=== PATIENT | male | born 1975 | race Asian ===

== ENCOUNTER 2017-06-29 15:23 | Inpatient (IN) | payer MEDICAID ==
[2017-06-29] MEDS ORDERED: Lidocaine 1% INJ* 10 MG/ML 30 ML SDV INJ ONE (17:20)
[2017-06-29] MEDS ORDERED: Ondansetron INJ* 2 MG/ML VIAL IV ONE (17:24)
[2017-06-29] MEDS ORDERED: Morphine INJ* 4 MG/ML 1 ML CARPUJECT IV ONE ×2 (17:24→18:40)
[2017-06-29] MEDS: NS 0.9% 1000 ML*IV.FLUID IV ONE ×2 (17:50→20:37)
--- NOTE | 2017-06-29 17:53 | ED ---
Skin Complaint - HPI Summary HPI Summary: 41M w/ PMH of HTN and hep C presents with abscess on right buttock for 4 days. He states he has felt like has an intermittent fever for past 4 days. He states he believes it started as an ingrown hair. He has been placing heat on the area. He has noticed some yellow drainage from the area. The area has been getting bigger. He is not diabetic. He does not have a primary as he just got out of snf. He denies any abdominal pain. He admits to diarrhea. He denies any chest pain, SOB. He denies any history of MRSA. He denies any nausea or vomiting. - History of Current Complaint Chief Complaint: EDRashSkinAbscess Time Seen by Provider: 06/29/17 17:08 Stated Complaint: INGROWN HAIR ON RIGHT LOWER BACK Pain Intensity: 10 - Allergy/Home Medications Allergies/Adverse Reactions: Allergies Allergy/AdvReac Type Severity Reaction Status Date / Time No Known Allergies Allergy Verified 06/29/17 15:29 Home Medications: Home Medications Celexa TAB* 20 mg PO DAILY 06/29/17 [History Confirmed 06/29/17] Mirtazapine TAB* [Remeron TAB*] 30 mg PO BEDTIME 06/29/17 [History Confirmed ] PMH/Surg Hx/FS Hx/Imm Hx Endocrine/Hematology History: Denies: Hx Anticoagulant Therapy, Hx Diabetes, Hx Thyroid Disease Cardiovascular History: Reports: Hx Hypertension Denies: Hx Pacemaker/ICD Respiratory History: Denies: Hx Asthma, Hx Chronic Obstructive Pulmonary Disease (COPD) History: Denies: Hx Renal Disease Neurological History: Denies: Hx Dementia, Hx Seizures Psychiatric History: Reports: Hx Substance Abuse - heroin clean X 1 year' Denies: Hx of Violent Episodes Against Others Infectious Disease History: No Infectious Disease History: Reports: Hx Hepatitis Denies: Hx Clostridium Difficile, Hx Human Immunodeficiency Virus (HIV), Hx Shingles, Hx Tuberculosis, Traveled Outside the [place] in Last 30 Days - Family History Known Family History: Negative: Diabetes - Social History Alcohol Use: None Substance Use Type: Reports: None Substance Use Comment - Amount & Last Used: hx of heroin abuse, 4-5 years clean Smoking Status (MU): Former Smoker Review of Systems Positive: Fever Negative: Chest Pain Negative: Shortness Of Breath Positive: Other - abscess right buttock All Other Systems Reviewed And Are Negative: Yes Physical Exam Triage Information Reviewed: Yes Vital Signs On Initial Exam: Initial Vitals Temp Pulse Resp BP Pulse Ox 99.6 F 120 16 138/72 97 06/29/17 15:26 06/29/17 15:26 06/29/17 15:26 06/29/17 15:26 06/29/17 15:26 Vital Signs Reviewed: Yes Appearance: Positive: Ill-Appearing Skin: Positive: Warm, Dry, Other - 8cm by 6cm area of locaulation with erythema and yellow drainage from center Head/Face: Positive: Normal Head/Face Inspection Eyes: Positive: Normal, EOMI, GLEN, Conjunctiva Clear ENT: Positive: Normal ENT inspection, Pharynx normal, TMs normal Respiratory/Lung Sounds: Positive: Clear to Auscultation, Breath Sounds Present Cardiovascular: Positive: Normal, RRR Abdomen Description: Positive: Nontender, Soft Bowel Sounds: Positive: Present Musculoskeletal: Positive: Normal Neurological: Positive: Normal - Radha Coma Scale Coma Scale Total: 15 Procedures - Incision and Drainage Site: right buttock Anesthesia: Local Instrument(s): Scalpel Packing: Gauze Diagnostics - Vital Signs Vital Signs Temp Pulse Resp BP Pulse Ox 06/29/17 17:49 15 06/29/17 15:26 99.6 F 120 16 138/72 97 - Laboratory Result Diagrams: 06/29/17 17:49 06/29/17 17:49 Lab Statement: Any lab studies that have been ordered have been reviewed, and results considered in the medical decision making process. Course/Dx - Course Course Of Treatment: 41M w/ PMH of HTN and hep C presents with abscess on right buttock for 4 days. He states he has felt like has an intermittent fever for past 4 days. He states he believes it started as an ingrown hair. He has been placing heat on the area. He has noticed some yellow drainage from the area. The area has been getting bigger. He is not diabetic. He does not have a primary as he just got out of snf. He denies any abdominal pain. He admits to diarrhea. He denies any chest pain, SOB. He denies any history of MRSA. He denies any nausea or vomiting. with patient vitals met sepsis criteria so gave fluids, labs, and vancomycin. on exam has large 8cm by 6cm abscess on right buttock. I&D abscess on buttock and got extensive amount of pus that packed with plain gauze. labs wbc 20. discussed with dr suárez who will admit as has poor follow up and elevated labs. patient understand and agrees with plan. - Differential Diagnoses - Skin Complaint Differential Diagnoses: Abscess, Cellulitis, Systemic Illness - Diagnoses Provider Diagnoses: Abscess of right buttock, Sepsis - Critical Care Time Critical Care Time: 30-74 min - 35 mins for meeting sepsis criteria Discharge - Discharge Plan Condition: Guarded Disposition: ADMITTED TO [facility]
[2017-06-29] MEDS ORDERED: Vancomycin 1500 MG IV - x ONCE IVPB ONE ×2 (18:00)
[2017-06-29] MEDS ORDERED: Vancomycin(*) 1,000 MG VIAL IVPB SCH (18:00)
[2017-06-29 18:20] LABS: Hematocrit 43 % (42-52); Hemoglobin 14.4 g/dl (14.0-18.0); Mean Corpuscular HGB Conc 34 g/dl (31-36); Mean Corpuscular Hemoglobin 32 pg (27-31); Mean Corpuscular Volume 96 fL (80-94); Mean Platelet Volume 8 um3 (7.4-10.4); Red Blood Count 4.48 10^6/ul (4.0-5.4); Red Cell Distribution Width 13 % (10.5-15)
[2017-06-29 18:23] LABS: Add Diff/Slide Review? Slide Review Added; Comments Flag Yes
[2017-06-29] MEDS ORDERED: Morphine INJ* 4 MG/ML 1 ML CARPUJECT ONE (18:42)
[2017-06-29 18:49] LABS: Albumin 3.9 g/dL (3.2-5.2); BUN/Creatinine Ratio 7.4 (8-20); Calcium 8.6 mg/dL (8.6-10.3); EGFR African American 135.7 (>60); EGFR Non-African American 105.5 (>60); Globulin 3.9 g/dL (2-4); Potassium 4.1 mmol/L (3.5-5.0); Total Bilirubin 0.4 mg/dL (0.2-1.0); Total Protein 7.8 g/dL (6.4-8.9)
[2017-06-29 18:55] LABS: Urine Bacteria Absent (Absent); Urine Bilirubin Negative (Negative); Urine Glucose Negative (Negative); Urine Nitrite Negative (Negative)
[2017-06-29 20:12] LABS: C Reactive Protein 84.6 mg/L (< 5.00)
[2017-06-29] MEDS ORDERED: NS 0.9% 1000 ML* 1,000 ML IV SCH (20:15)
[2017-06-29] MEDS ORDERED: ceFAZolin 1 GM VIAL(*) 1 GM in NS 0.9% 50 ML* 50 ML IVPB SCH (21:00)
[2017-06-29] MEDS: Mirtazapine TAB* 15 MG PO SCH (22:01)
[2017-06-29] MEDS ORDERED: Acetaminophen TAB* 325 MG PO PRN (23:06)
[2017-06-30] MEDS ORDERED: Zosyn per Pharmacy* NOTE FOLLOW UP PRN (00:06)
--- NOTE | 2017-06-30 00:06 | HP ---
HISTORY AND PHYSICAL: DATE OF ADMISSION: 06/29/17 PRIMARY CARE PROVIDER: None. CHIEF COMPLAINT: Buttock abscess. HISTORY OF PRESENT ILLNESS: Mr. Francisco is a 41-year-old male who was recently released from residential on 06/16/17 and has been residing at [facility] since, who presents to the emergency room with complaints of right buttock abscess. The patient states approximately 4 days ago, he woke up with pain in the right medial buttock. He states that he felt the area and noted that he had an approximate plum-sized lump. He tried using hot towels to see if that would help with the pain and swelling. It did not make a difference. The patient states 2 days ago he had a physical at [facility] and showed the physician there this area and was prescribed penicillin per the patient. He states that he has been taking it twice daily for the last 2 days without any improvement in his symptoms. He does state that overnight, last night and into today, he woke up several times drenched in sweat and with shaking chills. He has not taken his temperature, however. Today, he states that he has had much more pain in the right medial buttock. He has felt dizzy. He did note that there has been drainage from the affected area today. PAST MEDICAL HISTORY: 1. Hepatitis C. 2. Depression/anxiety. PAST SURGICAL HISTORY: Laparoscopic cholecystectomy. MEDICATIONS: 1. Celexa 20 mg p.o. daily. 2. Mobic 15 mg p.o. daily. 3. Remeron 30 mg p.o. q.h.s. ALLERGIES: No known drug allergies. FAMILY HISTORY: Mom is living, she has diabetes, hypertension. Dad is also living, he is healthy. SOCIAL HISTORY: The patient smokes 5 to 8 cigarettes per day. He denies any alcohol use. He states that he previously used heroin and last used in June 2014. He has not been working recently. He is not . He has 8 children. He indicates that his sister, Marcelina Francisco, is his healthcare proxy. REVIEW OF SYSTEMS: The patient admits to fevers, chills, sweats, and anorexia. He denies any chest pain No edema. He has had mild cough and shortness of breath. He admits to nausea. He has had diarrhea over the last couple of days, going 3 to 4 times per day. He denies any abdominal pain. No hematochezia, no hematuria, no dysuria. No focal neurologic symptoms. No sudden changes in vision. No dysphagia. No joint pains or muscle pains out of the ordinary. No rashes. He does admit to anxiety and depression. PHYSICAL EXAMINATION GENERAL: The patient is a well-developed middle-aged male, lying on his right side in the stretcher, appearing to be in no acute distress. VITAL SIGNS: Blood pressure 118/67, pulse 112, respirations 20, temp 99.6, O2 sat 96% on room air. HEENT: Pupils are equal and round. Extraocular muscles intact. Oropharynx is clear. Oral mucosa is moist. There is no submandibular, cervical, or supraclavicular adenopathy. Thyroid is not enlarged. No thyroid nodules noted. PULMONARY: Lungs are clear to auscultation bilaterally. CARDIAC: Normal S1, S2. Heart rate is mildly tachycardic, but regular. There is no lower extremity edema. ABDOMEN: Bowel sounds present. Abdomen is soft, nontender, nondistended. MUSCULOSKELETAL: There is no cyanosis or clubbing of the digits. There is full active range of motion of all 4 extremities. SKIN: Warm and dry. There are no rashes. NEUROLOGIC: Cranial nerves II through XII are grossly intact. Sensation is intact to light touch throughout. Strength is 5/5 and symmetric in both upper and lower extremities bilaterally. PSYCH: The patient is alert. He is oriented x3. Affect appears appropriate. DIAGNOSTIC STUDIES/LAB DATA: WBC 20.0, hemoglobin 14.4, hematocrit 43, platelets 284,000. Sodium 132, potassium 4.1, chloride 98, CO2 29, BUN 6, creatinine 0.81, glucose 135, lactic acid 1.4, calcium 8.6. Bilirubin 0.4, AST 18, ALT 28, alk phos 79. CRP pending. Albumin 3.9. Urinalysis reveals clear urine with a specific gravity of 1.009, 1+ blood, and trace leukocyte esterase. ASSESSMENT AND PLAN: Mr. Francisco is a 41-year-old male with history of hepatitis C, past heroin use, depression and anxiety, who presents to the emergency room with complaints of right buttock abscess. 1. Right buttock abscess and cellulitis. The patient is status post incision and drainage in the emergency room. Culture was obtained. The results of this are pending at this time. Given the patient's persistent tachycardia and elevated white blood cell count, the patient will be admitted under observation status to receive IV antibiotics overnight. He will be started on cefazolin 1 g IV q.6 hours. He did receive a dose of vancomycin in the emergency room. The patient has no past microbiology data to suggest he has colonized MRSA. The patient has received 3050 mL of normal saline in the emergency room based on meeting sepsis II criteria of 2 systemic inflammatory response syndrome criteria (tachycardia and leukocytosis) and a source of infection (buttock abscess). The patient does not meet criteria for sepsis under sepsis III guidelines. 2. Depression/anxiety. The patient will be maintained on his home medication regimen of Celexa 20 mg daily and Remeron 30 mg at bedtime. 3. Hepatitis C. The patient was last tested in September 2012. I will go ahead and re-send this to reevaluate his hepatitis C status. 4. DVT prophylaxis. According to the Adult Thrombosis Prophylaxis Risk Factor Assessment Guide, the patient has a total risk factor score of 1 making him low risk. Ambulation will be advised as DVT prophylaxis. Code status is full and again the patient indicates that his sister, Marcelina Francisco, is his healthcare proxy. TIME SPENT: Sixty five minutes was spent admitting this patient. [id number]/[facility] #: [id number] SANDRA
[2017-06-30] MEDS ORDERED: ZOSYN 3.375 GM x ONE DOSE over 30 miuntes IVPB ×2 (00:15)
[2017-06-30] MEDS ORDERED: Vancomycin(*) 1,750 MG in NS 0.9% 500 ML* 500 ML IVPB ONE (02:00)
[2017-06-30] MEDS ORDERED: Vancomycin per Pharmacy* NOTE FOLLOW UP PRN (02:01)
[2017-06-30] MEDS ORDERED: ZOSYN 3.375 GM Q8H per EXTENDED INFUSION IVPB SCH ×2 (04:30)
[2017-06-30] MEDS: ZOSYN 3.375 GM Q8H per EXTENDED INFUSION IVPB SCH ×4 (06:25→12:54)
[2017-06-30] MEDS: Morphine INJ* 2 MG/ML 1 ML SYRINGE (TWO MG - NEW SYRINGE VERSION) IV PRN ×2 (07:50→17:37)
[2017-06-30] MEDS: MELOXICAM 7.5 MG PO SCH (07:56)
[2017-06-30] MEDS: Citalopram TAB* 20 MG PO SCH (07:57)
[2017-06-30 09:12] LABS: Hematocrit 39 % (42-52); Hemoglobin 13.2 g/dl (14.0-18.0); Mean Corpuscular HGB Conc 34 g/dl (31-36); Mean Corpuscular Hemoglobin 32 pg (27-31); Mean Corpuscular Volume 95 fL (80-94); Mean Platelet Volume 8 um3 (7.4-10.4); Red Blood Count 4.09 10^6/ul (4.0-5.4); Red Cell Distribution Width 13 % (10.5-15); White Blood Count 12.6 10^3/ul (3.5-10.8)
[2017-06-30 09:43] LABS: BUN/Creatinine Ratio 10.3 (8-20); Calcium 8.2 mg/dL (8.6-10.3); EGFR African American 141.8 (>60); EGFR Non-African American 110.2 (>60); Potassium 3.8 mmol/L (3.5-5.0)
[2017-06-30] MEDS: HYDROcodone/ACETAMIN 5-325 MG* 1 TAB PO PRN ×2 (10:34→20:04)
[2017-06-30] MEDS: Vancomycin(*) 1,250 MG in NS 0.9% 250 ML* 250 ML IVPB SCH ×2 (10:34→17:37)
[2017-06-30] MEDS ORDERED: Nicotine PATCH 14 MG/24 HR* PATCH ONE (10:44)
[2017-06-30 10:47] LABS: Call Hep C TO BE CALLED
[2017-06-30] MEDS: Nicotine PATCH 7 MG/24 HR* PATCH TRANSDERM SCH (10:48)
[2017-06-30] MEDS ORDERED: Nicotine PATCH 7 MG/24 HR* PATCH ONE (10:49)
--- NOTE | 2017-06-30 16:30 | PN ---
Subjective Date of Service: 06/30/17 Interval History: Tmax 100.6 overnight, improving HR, Abscess still indurated, warm, difficult to tell progress (now marked) but seems slightly smaller compared to his mobile phone picture prior to admission. MRSA + on vancomycin and zosyn. Wilfrid other complaints. Objective Active Medications: Acetaminophen (Tylenol Tab*) 650 mg PO Q4H PRN PRN Reason: PAIN Last Admin: 06/29/17 23:28 Dose: 650 mg Hydrocodone Bitart/Acetaminophen ([place] 5-325 Tab*) 1 tab PO Q4H PRN PRN Reason: PAIN Last Admin: 06/30/17 10:34 Dose: 1 tab Citalopram Hydrobromide (Celexa Tab*) 20 mg PO DAILY [facility] Last Admin: 06/30/17 07:57 Dose: 20 mg Vancomycin HCl 1,250 mg/ (Sodium Chloride) 250 mls @ 166.667 mls/hr IVPB Q8H [facility] Last Admin: 06/30/17 10:34 Dose: 166.667 mls/hr Piperacillin Sod/Tazobactam (Sod 3.375 gm/ Sodium Chloride) 100 mls @ 25 mls/ hr IVPB 0600,1400,2200 [facility] Last Admin: 06/30/17 12:54 Dose: 25 mls/hr Meloxicam (Mobic(Nf)) 15 mg PO DAILY [facility] Last Admin: 06/30/17 07:56 Dose: 15 mg Mirtazapine (Remeron Tab*) 30 mg PO BEDTIME [facility] Last Admin: 06/29/17 22:01 Dose: 30 mg Morphine Sulfate (Morphine Inj (Syringe)*) 2 mg IV Q4H PRN PRN Reason: PAIN - MILD Last Admin: 06/30/17 07:50 Dose: 2 mg Nicotine (Nicotine Patch 7 Mg/24 Hr*) 1 patch TRANSDERM DAILY [facility] Last Admin: 06/30/17 10:48 Dose: 1 patch Pharmacy Consult (Zosyn Per Pharmacy*) 1 note FOLLOW UP . PRN PRN Reason: PER PROTOCOL Pharmacy Consult (Vancomycin Per Pharmacy*) 1 note FOLLOW UP . PRN PRN Reason: PER PROTOCOL Pharmacy Profile Note (Vancomycin Trough Check) 1 note FOLLOW UP 1030 ONE Stop: 07/01/17 10:31 Pharmacy Profile Note (Nicotine Patch Removal Note*) 1 note FOLLOW UP 0600 [facility] Vital Signs 06/29/17 06/29/17 06/29/17 20:30 20:44 20:45 Temperature 100.6 F Pulse Rate 113 108 108 Respiratory 11 14 16 Rate Blood Pressure 84/40 83/45 80/47 (mmHg) O2 Sat by Pulse 92 95 96 Oximetry 06/29/17 06/29/17 06/29/17 20:47 20:48 21:00 Temperature Pulse Rate 109 107 103 Respiratory 14 18 18 Rate Blood Pressure 77/38 80/47 94/49 (mmHg) O2 Sat by Pulse 96 94 90 Oximetry 06/29/17 06/29/17 06/29/17 21:47 21:50 23:22 Temperature 99.5 F 99.5 F 100.6 F Pulse Rate 103 105 Respiratory 18 16 Rate Blood Pressure 111/63 112/37 (mmHg) O2 Sat by Pulse 95 89 Oximetry 06/30/17 06/30/17 06/30/17 04:01 07:50 07:55 Temperature 97.7 F 98.2 F Pulse Rate 78 93 Respiratory 16 18 Rate Blood Pressure 102/59 97/61 (mmHg) O2 Sat by Pulse 98 94 Oximetry 06/30/17 06/30/17 06/30/17 08:00 10:19 10:34 Temperature Pulse Rate Respiratory 16 18 Rate Blood Pressure (mmHg) O2 Sat by Pulse 94 Oximetry 06/30/17 06/30/17 12:27 13:01 Temperature 98.1 F Pulse Rate 91 Respiratory 16 18 Rate Blood Pressure 115/62 (mmHg) O2 Sat by Pulse 97 Oximetry Oxygen Devices in Use Now: None Appearance: NAD, lying on side in bed Eyes: No Scleral Icterus, PERRLA Ears/Nose/Mouth/Throat: NL Teeth, Lips, Gums, Mucous Membranes Moist Neck: NL Appearance and Movements; NL JVP Respiratory: Symmetrical Chest Expansion and Respiratory Effort, Clear to Auscultation Cardiovascular: NL Sounds; No Murmurs; No JVD, RRR Abdominal: NL Sounds; No Tenderness; No Distention, No Hepatosplenomegaly Extremities: No Edema, No Clubbing, Cyanosis Skin: - - abscess right buttock ~10cm diameter with central packing. Neurological: Alert and Oriented x 3, NL Sensation, NL Muscle Strength and Tone Result Diagrams: 06/30/17 09:02 06/30/17 09:03 Additional Lab and Data: Laboratory Results - last 24 hr 06/29/17 06/29/17 06/29/17 17:49 17:49 17:49 WBC 20.0 H RBC 4.48 Hgb 14.4 Hct 43 MCV 96 H MCH 32 H MCHC 34 RDW 13 Plt Count 284 MPV 8 Neut % (Auto) 71.9 Lymph % (Auto) 12.9 L [place] % (Auto) 12.7 H Eos % (Auto) 1.6 Baso % (Auto) 0.9 Absolute Neuts (auto) 14.4 H Absolute Lymphs (auto) 2.6 Absolute Monos (auto) 2.5 H Absolute Eos (auto) 0.3 Absolute Basos (auto) 0.2 Absolute Nucleated RBC 0 Nucleated RBC % 0 Sodium 132 L Potassium 4.1 Chloride 98 L Carbon Dioxide 29 Anion Gap 5 BUN 6 Creatinine 0.81 Est GFR ( Amer) 135.7 Est GFR (Non-Af Amer) 105.5 BUN/Creatinine Ratio 7.4 L Glucose 135 H Hemoglobin A1c Lactic Acid 1.4 Calcium 8.6 Total Bilirubin 0.40 AST 18 ALT 28 Alkaline Phosphatase 79 C-Reactive Protein 84.60 H Total Protein 7.8 Albumin 3.9 Globulin 3.9 Albumin/Globulin Ratio 1.0 Urine Color Urine Appearance Urine pH Ur Specific [place] Urine Protein Urine Ketones Urine Blood Urine Nitrate Urine Bilirubin Urine Urobilinogen Ur Leukocyte Esterase Urine WBC (Auto) Urine RBC (Auto) Urine Bacteria Urine Glucose Hepatitis C Antibody 06/29/17 06/30/17 06/30/17 18:37 09:02 09:03 WBC 12.6 H RBC 4.09 Hgb 13.2 L Hct 39 L MCV 95 H MCH 32 H MCHC 34 RDW 13 Plt Count 228 MPV 8 Neut % (Auto) Lymph % (Auto) [place] % (Auto) Eos % (Auto) Baso % (Auto) Absolute Neuts (auto) Absolute Lymphs (auto) Absolute Monos (auto) Absolute Eos (auto) Absolute Basos (auto) Absolute Nucleated RBC Nucleated RBC % Sodium Potassium Chloride Carbon Dioxide Anion Gap BUN Creatinine Est GFR ( Amer) Est GFR (Non-Af Amer) BUN/Creatinine Ratio Glucose Hemoglobin A1c Lactic Acid Calcium Total Bilirubin AST ALT Alkaline Phosphatase C-Reactive Protein Total Protein Albumin Globulin Albumin/Globulin Ratio Urine Color Yellow Urine Appearance Clear Urine pH 5.0 Ur Specific [place] 1.009 L Urine Protein Negative Urine Ketones Negative Urine Blood 1+ H Urine Nitrate Negative Urine Bilirubin Negative Urine Urobilinogen Negative Ur Leukocyte Esterase Trace H Urine WBC (Auto) Trace(0-5/hpf) Urine RBC (Auto) Trace(0-2/hpf) Urine Bacteria Absent Urine Glucose Negative Hepatitis C Antibody High reactive H 06/30/17 06/30/17 09:03 09:03 WBC RBC Hgb Hct MCV MCH MCHC RDW Plt Count MPV Neut % (Auto) Lymph % (Auto) [place] % (Auto) Eos % (Auto) Baso % (Auto) Absolute Neuts (auto) Absolute Lymphs (auto) Absolute Monos (auto) Absolute Eos (auto) Absolute Basos (auto) Absolute Nucleated RBC Nucleated RBC % Sodium 140 D Potassium 3.8 Chloride 109 Carbon Dioxide 27 Anion Gap 4 BUN 8 Creatinine 0.78 Est GFR ( Amer) 141.8 Est GFR (Non-Af Amer) 110.2 BUN/Creatinine Ratio 10.3 Glucose 158 H Hemoglobin A1c 5.5 Lactic Acid Calcium 8.2 L Total Bilirubin AST ALT Alkaline Phosphatase C-Reactive Protein Total Protein Albumin Globulin Albumin/Globulin Ratio Urine Color Urine Appearance Urine pH Ur Specific [place] Urine Protein Urine Ketones Urine Blood Urine Nitrate Urine Bilirubin Urine Urobilinogen Ur Leukocyte Esterase Urine WBC (Auto) Urine RBC (Auto) Urine Bacteria Urine Glucose Hepatitis C Antibody Microbiology and Other Data: Microbiology 06/29/17 18:37 Urine Urine Culture - Final No Growth (<1,000 CFU/mL) 06/29/17 19:10 Buttock Skin and Soft Tissue MRSA/MSSA (PCR - Final Mrsa Positive S.aureus Positive 06/29/17 19:10 Buttock Gram Stain - Final Assess/Plan/Problems-Billing Assessment: 41 yo male PMH hepatitis C, remote heroin use, recently incarcerated p/w with right buttock abscess & chills. s/p I&D in ED. On vancomycin. s/p zosyn. Improving leukocytosis. - Patient Problems (1) Abscess of buttock, right Current Visit: Yes Status: Acute Code(s): L02.31 - CUTANEOUS ABSCESS OF BUTTOCK SNOMED Code(s): 25483565 Comment: MRSA + f/u final cultures continue vancomycin stop zosyn. (2) Hepatitis C Current Visit: Yes Status: Acute Comment: outpatient f/u LFTs wnl (3) SIRS (systemic inflammatory response syndrome) Current Visit: Yes Status: Acute Code(s): R65.10 - SIRS OF NON-INFECTIOUS ORIGIN W/O ACUTE ORGAN DYSFUNCTION SNOMED Code(s): 836737715 Comment: 2.2 to abscess. plan as above. continue antibiotics f/u blood cultures. remote hx of IVDU. negative Urine cultures. Status and Disposition: medicine. change to inpatient. Potential d/c 07/01 Attending: Devonte Samuel
[2017-06-30] MEDS: Mirtazapine TAB* 15 MG PO SCH (20:05)
[2017-07-01] MEDS: Vancomycin(*) 1,250 MG in NS 0.9% 250 ML* 250 ML IVPB SCH ×3 (02:15→18:17)
[2017-07-01] MEDS: Nicotine Patch Removal NOTE FOLLOW UP SCH (06:09)
[2017-07-01 06:32] LABS: Hematocrit 40 % (42-52); Hemoglobin 13.4 g/dl (14.0-18.0); Mean Corpuscular HGB Conc 34 g/dl (31-36); Mean Corpuscular Hemoglobin 32 pg (27-31); Mean Corpuscular Volume 94 fL (80-94); Mean Platelet Volume 8 um3 (7.4-10.4); Red Blood Count 4.19 10^6/ul (4.0-5.4); Red Cell Distribution Width 13 % (10.5-15); White Blood Count 8.3 10^3/ul (3.5-10.8)
[2017-07-01] MEDS: Nicotine PATCH 7 MG/24 HR* PATCH TRANSDERM SCH (08:22)
[2017-07-01] MEDS: Citalopram TAB* 20 MG PO SCH (08:22)
[2017-07-01] MEDS: MELOXICAM 7.5 MG PO SCH (08:22)
[2017-07-01] MEDS: HYDROcodone/ACETAMIN 5-325 MG* 1 TAB PO PRN ×3 (08:22→21:24)
[2017-07-01] MEDS: Morphine INJ* 2 MG/ML 1 ML SYRINGE (TWO MG - NEW SYRINGE VERSION) IV PRN (10:30)
[2017-07-01] MEDS ORDERED: Vancomycin Trough Check NOTE FOLLOW UP ONE (10:30)
--- NOTE | 2017-07-01 16:20 | PN ---
Subjective Date of Service: 07/01/17 Interval History: No new complaints. Leukocytosis resolved, afebrile. Still indurated but only painful to pressure. Surgery consulted. Objective Active Medications: Acetaminophen (Tylenol Tab*) 650 mg PO Q4H PRN PRN Reason: PAIN Last Admin: 06/29/17 23:28 Dose: 650 mg Hydrocodone Bitart/Acetaminophen ([place] 5-325 Tab*) 1 tab PO Q4H PRN PRN Reason: PAIN Last Admin: 07/01/17 14:34 Dose: 1 tab Citalopram Hydrobromide (Celexa Tab*) 20 mg PO DAILY [facility] Last Admin: 07/01/17 08:22 Dose: 20 mg Vancomycin HCl 1,250 mg/ (Sodium Chloride) 250 mls @ 166.667 mls/hr IVPB Q8H [facility] Last Admin: 07/01/17 11:24 Dose: 166.667 mls/hr Meloxicam (Mobic(Nf)) 15 mg PO DAILY [facility] Last Admin: 07/01/17 08:22 Dose: 15 mg Mirtazapine (Remeron Tab*) 30 mg PO BEDTIME [facility] Last Admin: 06/30/17 20:05 Dose: 30 mg Morphine Sulfate (Morphine Inj (Syringe)*) 2 mg IV Q4H PRN PRN Reason: PAIN - MILD Last Admin: 07/01/17 10:30 Dose: 2 mg Nicotine (Nicotine Patch 7 Mg/24 Hr*) 1 patch TRANSDERM DAILY [facility] Last Admin: 07/01/17 08:22 Dose: 1 patch Pharmacy Consult (Vancomycin Per Pharmacy*) 1 note FOLLOW UP . PRN PRN Reason: PER PROTOCOL Pharmacy Profile Note (Nicotine Patch Removal Note*) 1 note FOLLOW UP 0600 [facility] Last Admin: 07/01/17 06:09 Dose: 1 note Vital Signs 06/30/17 06/30/17 06/30/17 17:37 18:22 19:41 Temperature Pulse Rate Respiratory 18 14 17 Rate Blood Pressure (mmHg) O2 Sat by Pulse Oximetry 06/30/17 06/30/17 06/30/17 20:04 21:52 23:03 Temperature 98.1 F Pulse Rate 84 Respiratory 17 16 15 Rate Blood Pressure 117/64 (mmHg) O2 Sat by Pulse 97 Oximetry 06/30/17 07/01/17 07/01/17 23:42 03:52 07:47 Temperature 97.8 F 98.2 F 98.0 F Pulse Rate 79 89 80 Respiratory 16 16 Rate Blood Pressure 116/63 103/56 112/58 (mmHg) O2 Sat by Pulse 97 95 100 Oximetry 07/01/17 07/01/17 07/01/17 08:00 08:22 10:30 Temperature Pulse Rate Respiratory 16 18 18 Rate Blood Pressure (mmHg) O2 Sat by Pulse 100 Oximetry 07/01/17 07/01/17 07/01/17 11:14 11:32 13:20 Temperature 97.9 F Pulse Rate 89 Respiratory 16 16 18 Rate Blood Pressure 125/66 (mmHg) O2 Sat by Pulse 94 Oximetry 07/01/17 14:34 Temperature Pulse Rate Respiratory 16 Rate Blood Pressure (mmHg) O2 Sat by Pulse Oximetry Oxygen Devices in Use Now: None Appearance: NAD, lying on side. Eyes: No Scleral Icterus, PERRLA Ears/Nose/Mouth/Throat: NL Teeth, Lips, Gums, Mucous Membranes Moist Neck: NL Appearance and Movements; NL JVP, Trachea Midline Respiratory: Symmetrical Chest Expansion and Respiratory Effort, Clear to Auscultation Cardiovascular: NL Sounds; No Murmurs; No JVD, RRR Abdominal: NL Sounds; No Tenderness; No Distention, No Hepatosplenomegaly Extremities: No Edema, No Clubbing, Cyanosis Skin: - - abscess right buttock ~8cm, still quite indurated, slightly improved erythema. packing in place Neurological: Alert and Oriented x 3, NL Muscle Strength and Tone Result Diagrams: 07/01/17 06:19 06/30/17 09:03 Additional Lab and Data: Laboratory Results - last 24 hr 06/29/17 06/29/17 06/29/17 17:49 17:49 17:49 WBC 20.0 H RBC 4.48 Hgb 14.4 Hct 43 MCV 96 H MCH 32 H MCHC 34 RDW 13 Plt Count 284 MPV 8 Neut % (Auto) 71.9 Lymph % (Auto) 12.9 L Jackson % (Auto) 12.7 H Eos % (Auto) 1.6 Baso % (Auto) 0.9 Absolute Neuts (auto) 14.4 H Absolute Lymphs (auto) 2.6 Absolute Monos (auto) 2.5 H Absolute Eos (auto) 0.3 Absolute Basos (auto) 0.2 Absolute Nucleated RBC 0 Nucleated RBC % 0 Sodium 132 L Potassium 4.1 Chloride 98 L Carbon Dioxide 29 Anion Gap 5 BUN 6 Creatinine 0.81 Est GFR ( Amer) 135.7 Est GFR (Non-Af Amer) 105.5 BUN/Creatinine Ratio 7.4 L Glucose 135 H Hemoglobin A1c Lactic Acid 1.4 Calcium 8.6 Total Bilirubin 0.40 AST 18 ALT 28 Alkaline Phosphatase 79 C-Reactive Protein 84.60 H Total Protein 7.8 Albumin 3.9 Globulin 3.9 Albumin/Globulin Ratio 1.0 Urine Color Urine Appearance Urine pH Ur Specific [place] Urine Protein Urine Ketones Urine Blood Urine Nitrate Urine Bilirubin Urine Urobilinogen Ur Leukocyte Esterase Urine WBC (Auto) Urine RBC (Auto) Urine Bacteria Urine Glucose Hepatitis C Antibody 06/29/17 06/30/17 06/30/17 18:37 09:02 09:03 WBC 12.6 H RBC 4.09 Hgb 13.2 L Hct 39 L MCV 95 H MCH 32 H MCHC 34 RDW 13 Plt Count 228 MPV 8 Neut % (Auto) Lymph % (Auto) Jackson % (Auto) Eos % (Auto) Baso % (Auto) Absolute Neuts (auto) Absolute Lymphs (auto) Absolute Monos (auto) Absolute Eos (auto) Absolute Basos (auto) Absolute Nucleated RBC Nucleated RBC % Sodium Potassium Chloride Carbon Dioxide Anion Gap BUN Creatinine Est GFR ( Amer) Est GFR (Non-Af Amer) BUN/Creatinine Ratio Glucose Hemoglobin A1c Lactic Acid Calcium Total Bilirubin AST ALT Alkaline Phosphatase C-Reactive Protein Total Protein Albumin Globulin Albumin/Globulin Ratio Urine Color Yellow Urine Appearance Clear Urine pH 5.0 Ur Specific [place] 1.009 L Urine Protein Negative Urine Ketones Negative Urine Blood 1+ H Urine Nitrate Negative Urine Bilirubin Negative Urine Urobilinogen Negative Ur Leukocyte Esterase Trace H Urine WBC (Auto) Trace(0-5/hpf) Urine RBC (Auto) Trace(0-2/hpf) Urine Bacteria Absent Urine Glucose Negative Hepatitis C Antibody High reactive H 06/30/17 06/30/17 09:03 09:03 WBC RBC Hgb Hct MCV MCH MCHC RDW Plt Count MPV Neut % (Auto) Lymph % (Auto) Jackson % (Auto) Eos % (Auto) Baso % (Auto) Absolute Neuts (auto) Absolute Lymphs (auto) Absolute Monos (auto) Absolute Eos (auto) Absolute Basos (auto) Absolute Nucleated RBC Nucleated RBC % Sodium 140 D Potassium 3.8 Chloride 109 Carbon Dioxide 27 Anion Gap 4 BUN 8 Creatinine 0.78 Est GFR ( Amer) 141.8 Est GFR (Non-Af Amer) 110.2 BUN/Creatinine Ratio 10.3 Glucose 158 H Hemoglobin A1c 5.5 Lactic Acid Calcium 8.2 L Total Bilirubin AST ALT Alkaline Phosphatase C-Reactive Protein Total Protein Albumin Globulin Albumin/Globulin Ratio Urine Color Urine Appearance Urine pH Ur Specific [place] Urine Protein Urine Ketones Urine Blood Urine Nitrate Urine Bilirubin Urine Urobilinogen Ur Leukocyte Esterase Urine WBC (Auto) Urine RBC (Auto) Urine Bacteria Urine Glucose Hepatitis C Antibody Microbiology and Other Data: Microbiology 06/29/17 18:37 Urine Urine Culture - Final No Growth (<1,000 CFU/mL) 06/29/17 19:10 Buttock Skin and Soft Tissue MRSA/MSSA (PCR - Final Mrsa Positive S.aureus Positive 06/29/17 19:10 Buttock Gram Stain - Final Assess/Plan/Problems-Billing Assessment: 41 yo male PMH hepatitis C, remote heroin use, recently incarcerated p/w with right buttock abscess & chills. MRSA from wound culture. s/p I&D in ED. On vancomycin. s/p zosyn. Improving leukocytosis but still quite indurated. - Patient Problems (1) Abscess of buttock, right Current Visit: Yes Status: Acute Code(s): L02.31 - CUTANEOUS ABSCESS OF BUTTOCK SNOMED Code(s): 37761524 Comment: MRSA + with sensitivties back (sens to bactrim, clinda, doxy) continue vancomycin while inpatient, plan to bactrim surgery consulted appreciate assistance. Will plan outpatient follow up on Tuesday for wound check and packing change (3x/week) s/p zosyn. (2) Hepatitis C Current Visit: Yes Status: Acute Comment: outpatient f/u LFTs wnl (3) SIRS (systemic inflammatory response syndrome) Current Visit: Yes Status: Acute Code(s): R65.10 - SIRS OF NON-INFECTIOUS ORIGIN W/O ACUTE ORGAN DYSFUNCTION SNOMED Code(s): 670895157 Comment: resolved. / to abscess. plan as above. continue antibiotics NGTD blood cultures. remote hx of IVDU. negative Urine cultures. Status and Disposition: medicine inpatient. Potential d/c 11/18 Attending: Devonte Samuel
--- NOTE | 2017-07-01 16:34 | CONSULT ---
Consult Consult: Surgical consult dictated: Impression/Plan: Right buttock abscess, s/p I&D 2 days ago Exam with moderate induration surrounding R buttock wound, mildly tender. Cultures reviewed, MRSA isolated, continue Vancomycin, Bactrim DS for outpatient thereafter Plan for packing change on Tuesday at our office if patient discharged over weekend. Thank you for this consultation
[2017-07-01] MEDS: Mirtazapine TAB* 15 MG PO SCH (21:06)
--- NOTE | 2017-07-02 01:01 | CONS ---
CONSULTATION REPORT: DATE OF CONSULT: 07/01/17 PATIENT OF: Dr. Devonte Samuel. REFERRED TO: Dr. David Gonzalez. CHIEF COMPLAINT: Right buttock pain. REASON FOR CONSULT: Right buttock abscess. HISTORY OF PRESENT ILLNESS: Mr. Francisco is a pleasant 41-year-old gentleman, who was admitted to the hospital 2 days ago with right buttock abscess. The patient was apparently just released from correction about 2 weeks ago and has been residing at [facility] since then. He presented to the emergency room 2 days ago with complaints of 1-week history of worsening right buttock pain and swelling. He notes that he woke up 1 day with sudden onset of pain in the right buttock area that felt a little bit swollen and has gotten progressively worse reaching a size of about a plum. He tried using hot towels to help with the pain and swelling but it did not make much of a difference. He presented to the emergency room and had an I and D done in emergency room with cultures obtained eventually showed evidence of MRSA. The patient also exhibited symptoms of tachycardia, sweating, and shaking chills for which he was admitted for empiric therapy of right buttock abscess as well as wound management. We were asked to see the patient for further evaluation of right buttock abscess and to arrange for packing of the wound during his hospitalization and upon discharge. The patient notes that he has done significantly better since admission to the hospital. He complains of very minimal pain usually upon sitting on his buttock for a long period of time. He denied any fever or chills. The nursing staff on the 4th floor has been changing the packing daily and it was done an hour prior to this consultation. PAST MEDICAL HISTORY: Significant for hepatitis C as well as depression and anxiety. PAST SURGICAL HISTORY: Significant for laparoscopic cholecystectomy. CURRENT MEDICATIONS: His medications at home include: 1. Celexa 20 mg p.o. daily. 2. Mobic 15 mg p.o. daily. 3. Remeron 30 mg p.o. q.h.s. The patient also has been on vancomycin since his admission and also received 2 doses of cephalexin initially prior to culture results. ALLERGIES: He has no known drug allergies. FAMILY HISTORY: Noncontributory. SOCIAL HISTORY: The patient smokes about half a pack per day. He denies alcohol use. He states that he previously had used heroin, most recently in June 2014. He has not been working recently. He is not , and he has 8 children. REVIEW OF SYSTEMS: See HPI, otherwise negative. He denies any headache, dizziness, blurred vision, or double vision. He admits to fever, chills, sweats , and anorexia upon presentation; however, all his symptoms resolved after admission with IV antibiotics and after I and D of the abscess. No chest pain, palpitation, ankle swelling, or dyspnea at rest. No sore throat, cough, wheezing, or shortness of breath. He denies abdominal pain, nausea, vomiting, or changes in the bowel habits. No back pain, dysuria, hematuria, or urinary frequency. PHYSICAL EXAM: General: He is a pleasant, healthy-appearing, middle-aged gentleman, in no acute distress or discomfort at the time of consultation. Vitals: Most recent set of vitals revealed temperature of 97.9, pulse of 89, blood pressure of 125/66, respirations of 16, and O2 sat of 94% on room air. HEENT: Head is normocephalic, atraumatic. Sclerae anicteric. PERRLA. EOMs intact. Oropharynx is pink and moist with no exudate. Neck: Supple. Trachea midline. No cervical adenopathy noted. Lungs: Clear to auscultation bilaterally. Heart: Regular rate and rhythm. Normal S1 and S2 without rubs, murmurs, or gallops. Back with normal curvature, no CVA tenderness. Examination of the right buttock area revealed large area of induration extending from the mid buttock area medially approximately 6 to 7 cm to the lateral aspect. An I and D wound was noted that is circumferential measuring about 2 cm in diameter and packed with half-inch plain packing gauze. There is no significant tenderness or warmth on palpation. No active bleeding or discharge noted. An area of erythema and induration surrounding the I and D site as mentioned above, again nontender on palpation. Abdomen: Soft, nontender, and nondistended. No hernias, masses, or hepatosplenomegaly. Neurologic: Grossly intact. Rectal Exam: Deferred at this time. LABORATORY WORKUP: The patient was admitted with white count of 20,000 that eventually resolved with value of 8000 today, hemoglobin 13.4, hematocrit is 40 , and platelets of 244. His chemistry essentially within normal limits. Glucose is slightly elevated with value of 158 nonfasting. Hemoglobin A1c is 5.5. His urine was essentially within normal limits and hepatitis C antibody showed high reactivity. IMPRESSION: A 41-year-old gentleman with right buttock abscess, status post incision and drainage. PLAN: I went on and discussed with the patient the findings of his physical exam. We would recommend continuing vancomycin as long as the patient is admitted to the hospital and to consider to discharge him on Bactrim given his positive culture for MRSA. I also explained to him the necessity for packing change every 2 days. If he end up been discharged home this weekend, I will add our office number to his discharge paper, so he can follow up with us on Tuesday as an outpatient for packing change; however, if he end up being still admitted over the weekend, we will see him back on Tuesday for wound recheck and packing change. He appears to be comfortable at this point and area shows moderate induration that I think will eventually subside using antibiotics; however, I also discussed with him the possibility for debridement or further incision and drainage if indicated in the near future. He seems to understand and agrees to plans. I will discuss the case with Dr. Gonzalez for further recommendation regarding his care. Thank you for this consultation. LANDY INIGUEZ [id number]/[facility] #: [id number] MTDGisela
[2017-07-02] MEDS: Vancomycin(*) 1,250 MG in NS 0.9% 250 ML* 250 ML IVPB SCH ×2 (03:16→11:30)
[2017-07-02] MEDS: Nicotine Patch Removal NOTE FOLLOW UP SCH (06:28)
[2017-07-02] MEDS: Morphine INJ* 2 MG/ML 1 ML SYRINGE (TWO MG - NEW SYRINGE VERSION) IV PRN (08:12)
[2017-07-02] MEDS: Citalopram TAB* 20 MG PO SCH (08:16)
[2017-07-02] MEDS: Nicotine PATCH 7 MG/24 HR* PATCH TRANSDERM SCH (08:16)
[2017-07-02] MEDS: MELOXICAM 7.5 MG PO SCH (08:16)
[2017-07-02 08:29] VITALS: BP 97/50
[2017-07-02 10:36] LABS: Hematocrit 41 % (42-52); Hemoglobin 13.8 g/dl (14.0-18.0); Mean Corpuscular HGB Conc 34 g/dl (31-36); Mean Corpuscular Hemoglobin 32 pg (27-31); Mean Corpuscular Volume 94 fL (80-94); Mean Platelet Volume 8 um3 (7.4-10.4); Red Blood Count 4.36 10^6/ul (4.0-5.4); Red Cell Distribution Width 13 % (10.5-15)
[2017-07-02] MEDS: HYDROcodone/ACETAMIN 5-325 MG* 1 TAB PO PRN (13:28)
--- NOTE | 2017-07-04 04:14 | DS ---
DISCHARGE SUMMARY: DATE OF ADMISSION: 06/29/17. DATE OF DISCHARGE: 07/02/17. ADMITTING PROVIDER: Klaudia Wilkins DO. ATTENDING PHYSICIAN: Devonte Samuel MD. CHIEF COMPLAINT: Abscess on right buttocks. PRINCIPAL DIAGNOSES: MRSA abscess, status post I and D in emergency room; history of hepatitis C; de pression; anxiety; and recent incarceration. HISTORY OF PRESENT ILLNESS: Mr. Francisco is a 41-year-old male recently released from correction 2-1/2 weeks prior to admission residing at the [facility] and attending outpatient [facility] addiction treatment, who presented with 4 days of right buttock pain, swelling. He saw a provider at [facility], who did a physical and prescribed him with an antibiotic. He thinks it was penicillin, whic h he took for 2 days, but without any improvement in his symptoms. He then developed drenching night sweats and shaking chills and pain progressed. He felt dizzy, presented to [facility] Emergency Room. In the ED, incision and drainage of a right buttock abscess was performed. Cultures were obtained and u ltimately grew MRSA, sensitive to clindamycin, Bactrim, doxycycline, vancomycin; resistant to penicil eddie, cefazolin, Unasyn, and imipenem. He was continued on IV vancomycin until these cultures and the patient's induration slowly improved. The patient was without primary care provider given h is recent incarceration. So, to ensure safe followup plan, surgery team was consulted and appreciate assistance of John Hanson, who will follow up the patient as an outpatient on 07/04/17 for a wo und check and packing change. He will be discharged on Bactrim DS for additional 8 days or more as n eeded. He was given an nicotine patch while inpatient and prescription for same is provided. He puentes s have a history of hepatitis C, which was again confirmed on this admission and should be discussed potential treatment options with his new primary care provider, Patricia Bennett, who he will be hawa munson on 07/11/17. His initial leukocytosis was 20 and improved to 8 on time of discharge. His initial temperature was 100.6, he is now afebrile. Blood cultures were obtained and they were no growth to date for 48 hours . Urine culture was negative. DISCHARGE MEDICATIONS: Include: 1. Nicotine patch 7 mg for 24 hours. 2. Celexa 20 mg p.o. daily. 3. Meloxicam 50 mg p.o. daily. 4. Remeron 30 mg p.o. q.h.s. 5. Bactrim double strength tablet 800/160 p.o. b.i.d. for 8 days. DISCHARGE DIET: Unrestricted. ACTIVITY LEVEL: Unrestricted. FOLLOWUP: Please followup with Patricia Bennett NP on 07/11/17 at 2:15 p.m. for new primary care pr ovider initial visit and with John Hanson on 07/04/17 for packing change and wound check. He ma y need packing changes up to 3 times a week depending on progress of the abscess. Please continue [facility], outpatient addiction services as well. TIME SPENT: On discharge, 35 minutes. [id number]/[facility] #: [id number]
== END 2017-07-02 13:30 | disposition home or self-care (01) | DRG 383 ==
LOC: ED 15:23 → MED 20:11 → OBSVTOIN 06-30 16:13
PROVIDERS: ADMIT Hospitalist; ATTEND Internal Medicine
PROC: 0H98XZZ Drainage of Buttock Skin, External Approach (ICD-10-PCS; principal; 2017-06-30)
DX: L02.31 Cutaneous abscess of buttock (principal); B19.20 Unspecified viral hepatitis C without hepatic coma; I10 Essential (primary) hypertension; F32.9 Major depressive disorder, single episode, unspecified; F41.9 Anxiety disorder, unspecified; F17.210 Nicotine dependence, cigarettes, uncomplicated; L03.317 Cellulitis of buttock; B95.62 Methicillin resistant Staphylococcus aureus infection as the cause of diseases classified elsewhere; Z90.49 Acquired absence of other specified parts of digestive tract; Z83.3 Family history of diabetes mellitus; Z82.49 Family history of ischemic heart disease and other diseases of the circulatory system
CPT/HCPCS: 36415; 80048; 80053; 80202; 81003; 81015; 83036; 83605; 85025; 85027; 86140; 86803; 87040; 87070; 87077; 87086; 87186; 87205; 87640; 87641; A9270-GY; G0378; J0690; J2001; J2270; J2405; J2543; J3370

== ENCOUNTER 2017-12-13 23:53 | Emergency (ER) | payer OTHER ==
--- NOTE | 2017-12-14 02:58 | ED ---
Kojo Gonzalez Thomas, scribed for Chiqui Novoa MD on 12/14/17 at 0220 . Complex/Multi-Sys Presentation - HPI Summary HPI Summary: The patient is a 42 year old male who came to the emergency department after taking four pills of Remeron 30 mg yesterday at 21:00. He normally takes one pill. He reports taking four pills due to stress, and he denies trying to hurt himself. He describes a sensation of my mind is not there after taking the pills, but he is feeling better in the emergency department. - History Of Current Complaint Chief Complaint: EDOverdose Time Seen by Provider: 12/14/17 01:43 Hx Obtained From: Patient Onset/Duration: Lasting Hours, Resolved Timing: Intermittent, Lasting: Severity Currently: None Severity Initially: Moderate Location: Negative Aggravating Factor(s): None Associated Signs And Symptoms: Positive: Other - "my mind is not there" - Allergies/Home Medications Allergies/Adverse Reactions: Allergies Allergy/AdvReac Type Severity Reaction Status Date / Time No Known Allergies Allergy Verified 06/29/17 15:29 PMH/Surg Hx/FS Hx/Imm Hx Endocrine/Hematology History: Denies: Hx Anticoagulant Therapy, Hx Diabetes, Hx Thyroid Disease Cardiovascular History: Reports: Hx Hypertension Denies: Hx Pacemaker/ICD Respiratory History: Denies: Hx Asthma, Hx Chronic Obstructive Pulmonary Disease (COPD) History: Denies: Hx Renal Disease Sensory History: Denies: Hx Contacts or Glasses, Hx Hearing Aid Opthamlomology History: Denies: Hx Contacts or Glasses Neurological History: Reports: Other Neuro Impairments/Disorders - PREVIOUS EPISODES OF LOW BACK PAIN YEARS AGO. Denies: Hx Dementia, Hx Seizures Psychiatric History: Reports: Hx Substance Abuse - heroin clean X 1 year' Denies: Hx of Violent Episodes Against Others Infectious Disease History: No Infectious Disease History: Reports: Hx Hepatitis Denies: Hx Clostridium Difficile, Hx Human Immunodeficiency Virus (HIV), Hx Shingles, Hx Tuberculosis, Traveled Outside the [place] in Last 30 Days - Family History Known Family History: Negative: Diabetes - Social History Alcohol Use: None Substance Use Type: Reports: None Substance Use Comment - Amount & Last Used: hx of heroin abuse, 4-5 years clean Smoking Status (MU): Light Every Day Tobacco Smoker Review of Systems Negative: Fever Positive: Other - Stress, "my mind is not there" All Other Systems Reviewed And Are Negative: Yes Physical Exam - Summary Physical Exam Summary: VITAL SIGNS: Reviewed. GENERAL: Patient is a well-developed and nourished male who is lying comfortable in the stretcher. Patient is not in any acute respiratory distress. HEAD AND FACE: No signs of trauma. No ecchymosis, hematomas or skull depressions. No sinus tenderness. EYES: PERRLA, EOMI x 2, No injected conjunctiva, no nystagmus. EARS: Hearing grossly intact. Ear canals and tympanic membranes are within normal limits. MOUTH: Oropharynx within normal limits. NECK: Supple, trachea is midline, no adenopathy, no JVD, no carotid bruit, no c- spine tenderness, neck with full ROM. CHEST: Symmetric, no tenderness at palpation LUNGS: Clear to auscultation bilaterally. No wheezing or crackles. CVS: Regular rate and rhythm, S1 and S2 present, no murmurs or gallops appreciated. ABDOMEN: Soft, non-tender. No signs of distention. No rebound no guarding, and no masses palpated. Bowel sounds are normal. EXTREMITIES: FROM in all major joints, no edema, no cyanosis or clubbing. NEURO: Alert and oriented x 3. No acute neurological deficits. Speech is normal and follows commands. SKIN: Dry and warm Triage Information Reviewed: Yes Vital Signs On Initial Exam: Initial Vitals Temp Pulse Resp BP Pulse Ox 98.9 F 112 20 103/72 94 12/13/17 23:58 12/13/17 23:58 12/13/17 23:58 12/13/17 23:58 12/13/17 23:58 Vital Signs Reviewed: Yes Diagnostics - Vital Signs Vital Signs Temp Pulse Resp BP Pulse Ox 12/13/17 23:58 98.9 F 112 20 103/72 94 - Laboratory Lab Statement: Any lab studies that have been ordered have been reviewed, and results considered in the medical decision making process. - EKG 01:58 Cardiac Rate: NL EKG Rhythm: Sinus Rhythm - at 93 BPM EKG Interpretation: Normal axis, normal intervals, no acute ischemic change. Complex Multi-Symp Course/Dx Assessment/Plan: The patient is a 42 year old male who came to the emergency department after taking four pills of Remeron 30 mg, totaling 120 mg. It has been 6 hours since the ingestion of the Remeron 120 mg. He had a normal EKG with normal intervals. He feels better and is asymptomatic at this time. He will be discharged home. - Diagnoses Provider Diagnoses: Accidental overdose Discharge - Sign-Out/Discharge Documenting (check all that apply): Discharge/Admit/Transfer - Discharge Plan Condition: Stable Disposition: HOME Patient Education Materials: Adult Overdose (ED) Referrals: Ramy Hyman MD [Primary Care Provider] - 3 Days Additional Instructions: Follow up with your primary care physician in three days. Return to the emergency department for new or worsening symptoms. The documentation as recorded by the Kojo friedman Thomas accurately reflects the service I personally performed and the decisions made by , Chiqui Novoa MD.
[2017-12-14 03:00] VITALS: BP 109/76
== END 2017-12-14 02:59 | disposition home or self-care (01) ==
LOC: ED 23:53
DX: T43.021A Poisoning by tetracyclic antidepressants, accidental (unintentional), initial encounter (principal); Y92.9 Unspecified place or not applicable; I10 Essential (primary) hypertension; F17.210 Nicotine dependence, cigarettes, uncomplicated
CPT/HCPCS: 93005; 99284

== ENCOUNTER 2018-10-10 21:40 | Emergency (ER) | payer MEDICAID, OTHER ==
--- NOTE | 2018-10-10 23:53 | ED ---
Substance Abuse/Use - HPI Summary HPI Summary: A 42 y/o male presents to [facility] with a chief complaint of a detox request. He reports that he was clean for 4 years but two weeks ago he relapsed on heroin. He claims that "stuff going on with family" was an aggravating factor. At triage he rated his pain as a 4/10 in severity. He claims that for the past two weeks he has been using heroin three times per day, but felt sick. He claims that he was on suboxone before he relapsed, prescribed by [facility]. His last use of heroin was about 20:00 10/10/18. He is not working and claims that his significant other know that he relapsed. - History Of Current Complaint Chief Complaint: EDDetoxRequest Stated Complaint: DETOX Time Seen by Provider: 10/10/18 23:46 Hx Obtained From: Patient Onset/Duration of Drug/ETOH Abuse: Weeks Ingestion History: Type/Name Of Drug - heroin, Approximate Time Of Ingestion - 20:00 Timing Of Abuse: Daily Severity Initially: Mild Severity Currently: Mild Character: Other - wants to get better Aggravating Factor(s): Nothing Alleviating Factor(s): Nothing Associated Signs And Symptoms: Other: - "stuff with family" - Allergies/Home Medications Allergies/Adverse Reactions: Allergies Allergy/AdvReac Type Severity Reaction Status Date / Time No Known Allergies Allergy Verified 06/29/17 15:29 PMH/Surg Hx/FS Hx/Imm Hx Endocrine/Hematology History: Denies: Hx Anticoagulant Therapy, Hx Diabetes, Hx Thyroid Disease Cardiovascular History: Reports: Hx Hypertension Denies: Hx Pacemaker/ICD Respiratory History: Denies: Hx Asthma, Hx Chronic Obstructive Pulmonary Disease (COPD) History: Denies: Hx Renal Disease Sensory History: Denies: Hx Contacts or Glasses, Hx Hearing Aid Opthamlomology History: Denies: Hx Contacts or Glasses Neurological History: Reports: Other Neuro Impairments/Disorders - PREVIOUS EPISODES OF LOW BACK PAIN YEARS AGO. Denies: Hx Dementia, Hx Seizures Psychiatric History: Reports: Hx Substance Abuse - heroin clean X 1 year' Denies: Hx of Violent Episodes Against Others Infectious Disease History: No Infectious Disease History: Reports: Hx Hepatitis Denies: Hx Clostridium Difficile, Hx Human Immunodeficiency Virus (HIV), Hx Shingles, Hx Tuberculosis, Traveled Outside the [place] in Last 30 Days - Family History Known Family History: Negative: Diabetes - Social History Alcohol Use: None Substance Use Type: Reports: None Substance Use Comment - Amount & Last Used: hx of heroin abuse, 4-5 years clean Smoking Status (MU): Light Every Day Tobacco Smoker Review of Systems Negative: Fever Psychological: Other - positive: wants detox for heroin, "stuff going on" with family All Other Systems Reviewed And Are Negative: Yes Physical Exam - Summary Physical Exam Summary: Appearance: Well-appearing, Well-nourished, lying in bed comfortable Skin: Warm, dry, no obvious rash Eyes: sclera anicteric, no conjunctival pallor ENT: mucous membranes moist Neck: deferred Respiratory: No signs of respiratory distress Cardiovascular: Appears well perfused, pulses are nml Abdomen: deferred Musculoskeletal: Moving all 4 extremities without obvious discomfort Neurological: Awake and alert, mentation is normal, speech is fluent and appropriate Psychiatric: affect is normal, does not appear anxious or depressed Triage Information Reviewed: Yes Vital Signs On Initial Exam: Initial Vitals Temp Pulse Resp BP Pulse Ox 99 F 107 20 125/77 95 10/10/18 21:48 10/10/18 21:48 10/10/18 21:48 10/10/18 21:48 10/10/18 21:48 Vital Signs Reviewed: Yes Diagnostics - Vital Signs Vital Signs Temp Pulse Resp BP Pulse Ox 10/10/18 21:48 99 F 107 20 125/77 95 - Laboratory Lab Statement: Any lab studies that have been ordered have been reviewed, and results considered in the medical decision making process. Course/Dx - Course Course Of Treatment: A 42 y/o male presents to [facility] with a chief complaint of a detox request. He reports that he was clean for 4 years but two weeks ago he relapsed on heroin. He claims that "stuff going on with family" was an aggravating factor. At triage he rated his pain as a 4/10 in severity. He claims that for the past two weeks he has been using heroin three times per day , but felt sick. He claims that he was on suboxone before he relapsed, prescribed by [facility]. His last use of heroin was about 20:00 10/10/18. He is not working and claims that his significant other know that he relapsed.The physical exam was unremarkable. The patient will be discharged with a follow up with [facility]. He is agreeable with this plan. - Diagnoses Provider Diagnoses: Opiate addiction Discharge - Sign-Out/Discharge Documenting (check all that apply): Patient Departure - DC Patient Received Moderate/Deep Sedation with Procedure: No - Discharge Plan Condition: Good Disposition: HOME Patient Education Materials: Opioid Withdrawal (ED) Referrals: [facility] [Outside] Additional Instructions: You have a good support in [facility]. Like we talked about, get your suboxone first thing in the morning and go ahead and take 1. You can repeat that as needed until you feel the withdrawal symptoms are under control. Check in at [facility] as well, they will probably want to intensify your support around this relapse to help you get back on track. - Billing Disposition and Condition Condition: GOOD Disposition: Home - Attestation Statements Document Initiated by Franklin: Yes Documenting Scribe: Rogerio Higgins Provider For Whom Franklin is Documenting (Include Credential): Valentin Marvin MD Scribe Attestation: Rogerio Gonzalez, scribed for Valentin Marvin MD on 10/11/18 at 0508. Scribe Documentation Reviewed: Yes Provider Attestation: The documentation as recorded by the Rogerio friedman accurately reflects the service I personally performed and the decisions made by me, Valentin Marvin MD Status of Scribe Document: Viewed
[2018-10-11 00:09] VITALS: BP 108/90
== END 2018-10-11 00:09 | disposition home or self-care (01) ==
LOC: ED 21:40
DX: F11.20 Opioid dependence, uncomplicated (principal); F17.200 Nicotine dependence, unspecified, uncomplicated
CPT/HCPCS: 99282

== ENCOUNTER → 2018-11-01 13:25 | Emergency (ER) | payer MEDICAID ==
[2018-11-01 13:40] VITALS: BP 132/83
== END | disposition left against medical advice (07) ==
LOC: ED 13:25
DX: F19.90 Other psychoactive substance use, unspecified, uncomplicated (principal); Z53.21 Procedure and treatment not carried out due to patient leaving prior to being seen by health care provider

== ENCOUNTER 2018-11-30 06:34 | Emergency (ER) | payer MEDICAID ==
--- NOTE | 2018-11-30 07:01 | ED ---
HPI Chest Pain - HPI Summary HPI Summary: 43-year-old male presents with chest pain today. States chest pain is intermittent. He states it is located in the center of the chest. He states started after he injected some heroin. Denies any other drug use besides heroin. He states that he feels a little anxious. He states some shaky feeling in his legs and arms. He states he did have palpitations. No shortness of breath. He denies any nausea vomiting. Family history of heart disease. is not a smoker. No history of high blood pressure or diabetes. he states feels like bp is high but it is normal here in ED. - History of Current Complaint Chief Complaint: EDGeneral Time Seen by Provider: 11/30/18 06:45 Pain Intensity: 7 - Additional Pertinent History Primary Care Physician: [id number] - Allergy/Home Medications Allergies/Adverse Reactions: Allergies Allergy/AdvReac Type Severity Reaction Status Date / Time No Known Allergies Allergy Verified 11/30/18 06:39 PMH/Surg Hx/FS Hx/Imm Hx Endocrine/Hematology History: Denies: Hx Anticoagulant Therapy, Hx Diabetes, Hx Thyroid Disease Cardiovascular History: Reports: Hx Hypertension Denies: Hx Pacemaker/ICD Respiratory History: Denies: Hx Asthma, Hx Chronic Obstructive Pulmonary Disease (COPD) History: Denies: Hx Renal Disease Sensory History: Denies: Hx Contacts or Glasses, Hx Hearing Aid Opthamlomology History: Denies: Hx Contacts or Glasses Neurological History: Reports: Other Neuro Impairments/Disorders - PREVIOUS EPISODES OF LOW BACK PAIN YEARS AGO. Denies: Hx Dementia, Hx Seizures Psychiatric History: Reports: Hx Substance Abuse - heroin clean X 1 year' Denies: Hx of Violent Episodes Against Others Infectious Disease History: Yes Infectious Disease History: Reports: Hx Hepatitis Denies: Hx Clostridium Difficile, Hx Human Immunodeficiency Virus (HIV), Hx Shingles, Hx Tuberculosis, Traveled Outside the [place] in Last 30 Days - Family History Known Family History: Positive: Cardiac Disease Negative: Diabetes - Social History Alcohol Use: None Substance Use Type: Reports: Heroin Substance Use Comment - Amount & Last Used: hx of heroin abuse, 4-5 years clean Smoking Status (MU): Light Every Day Tobacco Smoker Review of Systems Negative: Fever Positive: Palpitations, Chest Pain Negative: Shortness Of Breath All Other Systems Reviewed And Are Negative: Yes Physical Exam Triage Information Reviewed: Yes Vital Signs On Initial Exam: Initial Vitals Temp Pulse Resp BP Pulse Ox 97.7 F 80 18 128/81 95 11/30/18 06:35 11/30/18 06:35 11/30/18 06:35 11/30/18 06:35 11/30/18 06:35 Vital Signs Reviewed: Yes Appearance: Positive: Well-Appearing Skin: Positive: Warm, Dry Head/Face: Positive: Normal Head/Face Inspection Eyes: Positive: Normal, Conjunctiva Clear ENT: Positive: Pharynx normal Respiratory/Lung Sounds: Positive: Clear to Auscultation, Breath Sounds Present , Other - reproducible chest pain Cardiovascular: Positive: Normal, RRR Abdomen Description: Positive: Nontender, Soft Bowel Sounds: Positive: Present Musculoskeletal: Positive: Normal Neurological: Positive: Normal Psychiatric: Positive: Normal Diagnostics - Vital Signs Vital Signs Temp Pulse Resp BP Pulse Ox 11/30/18 06:35 97.7 F 80 18 128/81 95 - Laboratory Result Diagrams: 11/30/18 07:20 11/30/18 07:20 Lab Statement: Any lab studies that have been ordered have been reviewed, and results considered in the medical decision making process. - EKG No standard instances Cardiac Rate: NL EKG Rhythm: Sinus Rhythm EKG Comparison: No Significant Change Summary of EKG Findings: sinus rhythm, early repolization Re-Evaluation - Re-Evaluation First Eval Re-Evaluation Time: 08:28 Comment: still no symptoms, discussed likely anxiety vs costrochondritis Chest Pain Course/Dx - Course Course Of Treatment: 43-year-old male presents with chest pain today. States chest pain is intermittent. He states it is located in the center of the chest. He states started after he injected some heroin. Denies any other drug use besides heroin. He states that he feels a little anxious. He states some shaky feeling in his legs and arms. He states he did have palpitations. No shortness of breath. He denies any nausea vomiting. Family history of heart disease. is not a smoker. No history of high blood pressure or diabetes. On exam has reproducible chest pain. Lungs clear to auscultation. Heart regular rate and rhythm. EKG shows sinus rhythm. troponin zero. patient had no symptoms in ED. discussed could be anxiety vs costrochondritis. told follow up with [facility]. told [facility] with [facility] about [facility]. patient understand and agrees with plan. - Chest Pain Differential Diagnosis/HQI/PQRI: Acute ND, Chest Wall, GI Disease - Diagnoses Provider Diagnoses: Chest pain, Palpitations, Heroin use Discharge - Sign-Out/Discharge Documenting (check all that apply): Patient Departure Patient Received Moderate/Deep Sedation with Procedure: No - Discharge Plan Condition: Good Disposition: HOME Patient Education Materials: Chest Pain (ED) Referrals: [facility] [Outside] Additional Instructions: Follow up with [facility] Can follow up with [facility] Return to ED if develop any new or worsening symptoms - Billing Disposition and Condition Condition: GOOD Disposition: Home
[2018-11-30 07:49] LABS: Hematocrit 41 % (36-46); Hemoglobin 13.8 g/dL (14.0-18.0); Mean Corpuscular HGB Conc 34 g/dL (31-36); Mean Corpuscular Hemoglobin 32 pg (27-31); Mean Corpuscular Volume 94 fL (80-94); Red Blood Count 4.35 10^6 /uL (4.18-5.48); Red Cell Distribution Width 13 % (10.5-15); White Blood Count 8.4 10^3/uL (3.5-10.8)
[2018-11-30 08:01] LABS: Albumin 4.1 g/dL (3.2-5.2); Albumin/Globulin Ratio 1.3 (1-3); BUN/Creatinine Ratio 15.4 (8-20); Calcium 9.1 mg/dL (8.6-10.3); EGFR African American 132.1 (>60); EGFR Non-African American 109.2 (>60); Globulin 3.2 g/dL (2-4); Magnesium 2.1 mg/dL (1.9-2.7); Potassium 3.7 mmol/L (3.5-5.0); Total Bilirubin 0.5 mg/dL (0.2-1.0); Total Protein 7.3 g/dL (6.4-8.9)
[2018-11-30 08:07] LABS: ABS Basophils 0.1 10^3/ul (0-0.2); ABS Eosinophils 0.4 10^3/ul (0-0.6); ABS Lymphocytes 2.8 10^3/ul (1.0-4.8); ABS Monocytes 1.1 10^3/ul (0-0.8); ABS Neutrophils 4.1 10^3/ul (1.5-7.7); ABS Nucleated RBC 0 10^3/ul; Eosinophil % 4.2 %; Lymphocyte % 32.8 %; Mean Platelet Volume 9.1 fL (7.4-10.4); Nucleated Red Blood Cells % 0; Platelet Count 244 10^3/uL (150-450)
[2018-11-30 08:30] LABS: TSH (Thyroid Stimulating Horm) 2.43 mcIU/mL (0.34-5.60)
[2018-11-30 08:47] VITALS: BP 115/70
== END 2018-11-30 08:48 | disposition home or self-care (01) ==
LOC: ED 06:34
DX: R07.9 Chest pain, unspecified (principal); R00.2 Palpitations; F11.90 Opioid use, unspecified, uncomplicated; Z72.0 Tobacco use; I10 Essential (primary) hypertension; K75.9 Inflammatory liver disease, unspecified
CPT/HCPCS: 36415; 80053; 83735; 84443; 84484; 85025; 93005; 99282

== ENCOUNTER 2018-12-20 03:30 | Day surgery (SDC) | payer MEDICAID ==
[2018-12-20] MEDS ORDERED: Ondansetron INJ* 2 MG/ML VIAL ONE ×2 (03:43)
[2018-12-20] MEDS ORDERED: Heparin for STEMI(*) 5,000 UNITS/ML 1 ML VIAL IV ONE ×4 (03:43→03:52)
[2018-12-20] MEDS ORDERED: Aspirin 81 mg CHEW TAB* 81 MG TAB.CHEW ONE ×2 (03:43)
[2018-12-20] MEDS ORDERED: Nitroglycerin TAB 0.4 MG* 0.4 MG TAB ONE ×2 (03:43)
[2018-12-20] MEDS ORDERED: Ticagrelor* 90 MG TAB PO ONE ×3 (03:44)
[2018-12-20] MEDS ORDERED: Aspirin 81 mg CHEW TAB* 81 MG TAB.CHEW PO ONE (03:44)
[2018-12-20] MEDS ORDERED: Morphine INJ* 10 MG/ML 1 ML CARPUJECT IV ONE (03:44)
[2018-12-20] MEDS ORDERED: Ondansetron INJ* 2 MG/ML VIAL IV ONE (03:44)
[2018-12-20] MEDS ORDERED: nitroGLYCERIN DRIP* 25,000 MCG/250 ML BTL ONE ×4 (03:44→04:07)
[2018-12-20] MEDS ORDERED: Morphine 4 MG/ML VIAL (1 ml) 4 MG/ML VIAL ONE ×4 (03:44→04:00)
[2018-12-20] MEDS ORDERED: Metoprolol Tartrate IV* 1 MG/ML 5 ML VIAL IV ONE ×2 (03:46→03:58)
[2018-12-20] MEDS ORDERED: Metoprolol Tartrate IV* 1 MG/ML 5 ML VIAL ONE ×2 (03:47)
--- NOTE | 2018-12-20 03:49 | ED ---
HPI Chest Pain - HPI Summary HPI Summary: A 43 y/o male accompanied by his sister presents to [facility] with a chief complaint of chest pain for the past 15-20 minutes. He says that he was lying down sleeping and woke up with the pain. The patient is diaphoretic and reports an episode of vomiting. He has a Hx of heroin use but claims that he has been clean for 7 days and denies cocaine use. STEMI alert was called at 03:42. - History of Current Complaint Chief Complaint: EDChestPainROMI Time Seen by Provider: 12/20/18 03:39 Hx Obtained From: Patient, Family/Cleaner Operator Onset/Duration: Started Minutes Ago, Still Present Time of Onset: 03:30 - around 3:30 Timing: Constant Initial Severity: Mild Current Severity: Mild Pain Intensity: 0 Pain Scale Used: 0-10 Numeric Chest Pain Location: Diffuse Chest Pain Radiates: No Character: Other: - unable to describe Aggravating Factor(s): Nothing Alleviating Factor(s): Nothing Associated Signs and Symptoms: Positive: Diaphoresis, Nausea, Vomiting - Additional Pertinent History Primary Care Physician: AMILCAR - Allergy/Home Medications Allergies/Adverse Reactions: Allergies Allergy/AdvReac Type Severity Reaction Status Date / Time No Known Allergies Allergy Verified 11/30/18 06:39 PMH/Surg Hx/FS Hx/Imm Hx Endocrine/Hematology History: Denies: Hx Anticoagulant Therapy, Hx Diabetes, Hx Thyroid Disease Cardiovascular History: Reports: Hx Hypertension Denies: Hx Pacemaker/ICD Respiratory History: Denies: Hx Asthma, Hx Chronic Obstructive Pulmonary Disease (COPD) History: Denies: Hx Renal Disease Sensory History: Denies: Hx Contacts or Glasses, Hx Hearing Aid Opthamlomology History: Denies: Hx Contacts or Glasses Neurological History: Reports: Other Neuro Impairments/Disorders - PREVIOUS EPISODES OF LOW BACK PAIN YEARS AGO. Denies: Hx Dementia, Hx Seizures Psychiatric History: Reports: Hx Substance Abuse - heroin clean X 1 year' Denies: Hx of Violent Episodes Against Others Infectious Disease History: No Infectious Disease History: Reports: Hx Hepatitis Denies: Hx Clostridium Difficile, Hx Human Immunodeficiency Virus (HIV), Hx Shingles, Hx Tuberculosis, Traveled Outside the [place] in Last 30 Days - Family History Known Family History: Positive: Cardiac Disease Negative: Diabetes - Social History Alcohol Use: None Substance Use Type: Reports: Heroin Substance Use Comment - Amount & Last Used: hx of heroin abuse, 7 days Hx Tobacco Use: Yes Smoking Status (MU): Light Every Day Tobacco Smoker Review of Systems Positive: Skin Diaphoresis. Negative: Fever Positive: Chest Pain Positive: Vomiting, Nausea All Other Systems Reviewed And Are Negative: Yes Physical Exam - Summary Physical Exam Summary: VITAL SIGNS: Reviewed. GENERAL: Patient is a pale and diaphoretic MALE who is in distress. Patient is not in any acute respiratory distress. HEAD AND FACE: No signs of trauma. No ecchymosis, hematomas or skull depressions. No sinus tenderness. EYES: PERRLA, EOMI x 2, No injected conjunctiva, no nystagmus. EARS: Hearing grossly intact. Ear canals and tympanic membranes are within normal limits. MOUTH: Oropharynx within normal limits. NECK: Supple, trachea is midline, no adenopathy, no JVD, no carotid bruit, no c- spine tenderness, neck with full ROM CHEST: Symmetric, no tenderness at palpation LUNGS: Clear to auscultation bilaterally. No wheezing or crackles. CVS: tachycardic, S1 and S2 present, no murmurs or gallops appreciated. ABDOMEN: Soft, non-tender. No signs of distention. No rebound no guarding, and no masses palpated. Bowel sounds are normal. EXTREMITIES: FROM in all major joints, no edema, no cyanosis or clubbing. NEURO: Alert and oriented x 3. No acute neurological deficits. Speech is normal and follows commands. SKIN: Dry and warm Triage Information Reviewed: Yes Vital Signs On Initial Exam: Initial Vitals Temp Pulse Resp BP Pulse Ox 96 F 138 20 106/78 96 12/20/18 03:32 12/20/18 03:32 12/20/18 03:32 12/20/18 03:32 12/20/18 03:32 Vital Signs Reviewed: Yes Diagnostics - Vital Signs Vital Signs Temp Pulse Resp BP Pulse Ox 12/20/18 03:32 96 F 138 20 106/78 96 - Laboratory Result Diagrams: 12/20/18 03:43 12/20/18 03:43 Lab Statement: Any lab studies that have been ordered have been reviewed, and results considered in the medical decision making process. - Radiology CXR Radiology Interpretation Completed By: ED Physician Summary of Radiographic Findings: no acute process. Pending official imaging report. - EKG 03:35 Cardiac Rate: Tachycardia - 128 bpm EKG Rhythm: Sinus Tachycardia Summary of EKG Findings: Sinus tachycardia at 128 bpm, ST elevation V1-V6 with ST depression in III and F. Chest Pain Course/Dx - Course Course Of Treatment: A 43 y/o male accompanied by his sister presents to [facility] with a chief complaint of chest pain for the past 15-20 minutes. He says that he was lying down sleeping and woke up with the pain. The patient is diaphoretic and reports an episode of vomiting. He has a Hx of heroin use but claims that he has been clean for 7 days and denies cocaine use. STEMI alert was called at 03:42. The physical exam revealed that the patient was a pale diaphoretic male in distress with tachycardia. EKG showed sinus tachycardia at 128 bpm, ST elevation V1-V6 with ST depression in III and F. In the ED course the patient was given Heparin IV and Aspirin PO. CXR showed no acute process. Bloodwork and chemistries obtained. Discussed case with Dr. Flores, inspector process , who will accept the patient for admission. The patient will go to the [facility] and is acceptable with this plan. - Diagnoses Provider Diagnoses: ST elevation PA (STEMI) - Provider Notifications Discussed Care Of Patient With: Rogerio Flores Time Discussed With Above Provider: 03:50 Instructed by Provider To: Other - Discussed patient and EKG, he will see the patient in the ED and accept the patient for admission. - Critical Care Time Critical Care Time: 30-74 min - 45 Discharge - Sign-Out/Discharge Documenting (check all that apply): Patient Departure - admit Patient Received Moderate/Deep Sedation with Procedure: No - Discharge Plan Condition: Fair Disposition: ADMITTED TO [facility] - Billing Disposition and Condition Condition: FAIR Disposition: Admitted to [facility] - Attestation Statements Document Initiated by Scribe: Yes Documenting Scribe: Rogerio Higgins Provider For Whom Franklin is Documenting (Include Credential): Chiqui Novoa MD Scribe Attestation: Rogerio Gonzalez, scribed for Chiqui Novoa MD on 12/20/18 at 0640. Scribe Documentation Reviewed: Yes Provider Attestation: The documentation as recorded by the Rogerio friedman accurately reflects the service I personally performed and the decisions made by me, Chiqui Novoa MD Status of Scribe Document: Viewed
[2018-12-20] MEDS ORDERED: Heparin VIAL(*) 5000 UNITS/ML VIAL (FIVE THOUSAND) ONE ×2 (03:52)
[2018-12-20] MEDS ORDERED: Morphine 10 MG/ML VIAL (1 ml) IV ONE (03:58)
[2018-12-20 04:02] LABS: Hematocrit 47 % (42-52); Hemoglobin 15.8 g/dL (14.0-18.0); Mean Corpuscular HGB Conc 34 g/dL (31-36); Mean Corpuscular Hemoglobin 32 pg (27-31); Mean Corpuscular Volume 93 fL (80-94); Mean Platelet Volume 7.8 fL (7.4-10.4); Platelet Count 406 10^3/uL (150-450); Red Blood Count 5.01 10^6 /uL (4.18-5.48); Red Cell Distribution Width 13 % (10.5-15)
[2018-12-20 04:05] LABS: ABS Basophils 0.2 10^3/ul (0-0.2); ABS Eosinophils 0.2 10^3/ul (0-0.6); ABS Monocytes 2.1 10^3/ul (0-0.8); ABS Neutrophils 10.5 10^3/ul (1.5-7.7); Eosinophil % 1.4 %; Lymphocyte % 18.6 %
[2018-12-20] MEDS ORDERED: Lidocaine 1% INJ* 10 MG/ML 30 ML SDV ONE ×2 (04:07)
[2018-12-20] MEDS ORDERED: Heparin(*) 1000 UNIT/ML 10 ML VIAL CATH LAB IV ONE ×2 (04:07→04:08)
[2018-12-20] MEDS ORDERED: VERAPAMIL 2.5 MG/ML 2 ML VIAL ** 5 mg/2 ml ONE ×2 (04:07)
[2018-12-20] MEDS ORDERED: Heparin 2 UNITS/ML IVPREMIX* 3,000 UNIT/1,500 ML BAG IV ONE ×2 (04:08)
[2018-12-20] MEDS ORDERED: Iohexol 350 (CONTRAST) 200 ML MDV IV ONE (04:09)
[2018-12-20 04:11] LABS: Activated Partial Thrombo Time 29.6 seconds (26.0-36.3); INR 1.15 (0.82-1.09)
[2018-12-20 04:20] LABS: Albumin 4.7 g/dL (3.2-5.2); Albumin/Globulin Ratio 1.2 (1-3); BUN/Creatinine Ratio 4.8 (8-20); Calcium 10.1 mg/dL (8.6-10.3); EGFR African American 42.1 (>60); EGFR Non-African American 34.8 (>60); Globulin 3.9 g/dL (2-4); Potassium 3.7 mmol/L (3.5-5.0); Total Bilirubin 0.6 mg/dL (0.2-1.0); Total Protein 8.6 g/dL (6.4-8.9)
[2018-12-20 04:22] LABS: Troponin I 0.01 ng/mL (<0.04)
[2018-12-20 04:24] LABS: CKMB ng/mL 2.7 ng/mL (0.6-6.3)
[2018-12-20 04:31] VITALS: BP 126/86
[2018-12-20] MEDS ORDERED: fentaNYL* 50 MCG/ML 2 ML VIAL (100 MCG VIAL) ONE (04:33)
[2018-12-20] MEDS ORDERED: Midazolam* 1 MG/ML 5 ML VIAL (5 MG) ONE (04:33)
[2018-12-20] MEDS ORDERED: Iodixanol 320 (CONTRAST) 100 ML SDV ONE ×2 (04:40→04:44)
[2018-12-20] MEDS ORDERED: Bivalirudin(*) 250 MG VIAL ONE ×6 (04:45→06:08)
--- NOTE | 2018-12-20 08:07 | TRS ---
ER CONSULTATION/[place] [facility]SF[facility] SUMMARY: DATE OF CONSULT: 12/20/18 CHIEF COMPLAINT: The patient presents with severe chest discomfort with STEMI anterior wall on EKG. HISTORY OF PRESENT ILLNESS: The patient is a 43-year-old gentleman with no prior known cardiac history. Specifically, he denies any history of myocardial infarction, congestive heart failure, or significant heart rhythm disturbance. He was in his usual state of health. He is a drug user and had taken heroin prior to his chest pain starting today. In the middle of the night, he was up bathing his daughter in the shower, brought her back to bed with the , and then a short time afterwards he reportedly used heroin and developed crushing chest discomfort. He had marked anxiety with this and as such, his brought him to the emergency room. In the emergency room, EKG revealed a large anterior wall myocardial infarction with diffuse ST-segment elevation throughout the precordium in I and aVL with reciprocal changes. A STEMI alert was called. The patient received initially 3000 of heparin, a full-dose aspirin , and 180 mg of Brilinta. Of note, on my way in, I told them to also give an additional 4000 units of heparin. As such, on arrival, he was still having significant symptoms. We are planned to take him to the cardiovascular laboratory emergently. PAST MEDICAL HISTORY: Includes a history of drug abuse. He stated to the emergency room physician that he did have a history of hypertension. He denied any history of hyperlipidemia or diabetes. He does smoke. He denied any known history of lung disease or kidney disease. There reportedly is a family history of heart disease. He has a hx also Hepatitis C. REVIEW OF SYSTEMS: Pertinent to proceeding emergently to the cardiovascular laboratory, the patient initially denied any history of kidney problems. He denied any history of contrast allergies. He denied any history of hematochezia , hematemesis, or hematuria. He denied any history of stroke or prior TIA. PHYSICAL EXAMINATION: In the emergency room revealed an appropriately anxious gentleman. Vital signs were blood pressure 126/86, pulse 89 and regular, respirations 19, O2 saturation 97%. Neck was supple. There was no increased JVP. There were no bruits. Chest was clear to A and P. Heart was distant in nature, but regular in rate and rhythm. No significant murmurs. Abdomen was soft and nontender. Extremities were without edema. Neuro: The patient was alert and oriented. Musculoskeletal: The patient moves all extremities appropriately. Psychological: The patient was appropriately anxious. DIAGNOSTIC STUDIES/LAB DATA: Cardiovascular Laboratory Results: The patient was taken to the cardiovascular laboratory, which revealed the right coronary artery to be normal without significant disease. The left main appeared to be normal in its proximal to mid portion. The distal portion of the left main had mild luminal irregularities. The proximal LAD had a hazy eccentric lesion at the ostium right to the left main with the degree of stenosis appearing to be as much as 75% to 80%. The continuation of the left anterior descending artery suggested the possibility of a cutoff of the very distal LAD as well as a cutoff of the distal portion of the second diagonal branch. The caliber of the vessels at this point was very small in nature. The circumflex artery supplied the trifurcation marginal branch, which bifurcated, followed by the main circumflex. There is no significant disease seen throughout the circumflex. The left ventriculogram revealed mid to distal anterior apical akinesis with preservation of the proximal anterior wall as well as the inferior wall. The overall ejection fraction appeared to be 40% to 45%. Laboratory results came back during the catheterization revealing sodium 139, potassium 3.7, chloride 102, bicarb 25, BUN 10, but a creatinine of 2.1. Lactic acid level was 2.4, total CPK 79, MB 2.7, troponin 0.01, and BNP of 17. The white count was 16,000, hemoglobin and hematocrit of 15.8 and 47, platelet count of 406,000. Initial EKG in the emergency room revealed sinus tachycardia, heart rate 128. There was diffuse ST-segment elevation in I and aVL and V2 through [address]- segment scooping in III and aVF. Question of minimal ST elevation in lead II was noted as well. OVERALL ASSESSMENT: The patient presents with acute ST-segment elevation anterior wall myocardial infarction, which by the time we got to the sleep lab technician appeared to have improved. His symptoms were markedly improved, but still somewhat present. He had SAMARIA-3 flow down the artery, except for the most distal portion of the LAD and the distal portion of the second diagonal branch as mentioned. A discussion was had with Dr. Bill Hannah, insole filler at [facility], who had a chance to review the films with me and felt that in general if stenting was to be performed, it would have to be back into the left main. Given his history of drug abuse with relapses, he felt he would probably be a poor candidate for this and as such, he thought that bypass surgery with HASTINGS to the LAD would be the more appropriate approach. I then discussed the case with Dr. Jori Kaur, cardiothoracic surgeon. At this point in time, the patient will be transferred up to the cardiovascular surgery service. However, they will consider continuing anticoagulation intravenously while the Brilinta wears off and possibly repeating the cardiac catheterization to see if there has been significant improvement to perhaps a thrombus burden in the ostium of the LAD given the fact that there were distal embolizations probably to the most distal portion of the LAD and the distal portion of the second diagonal branch. Of note, the radial artery sheath was left in place for the ride in case the patient had an abrupt deterioration and would need emergent stenting of the left main by interventional cardiology. The patient was kept on an Angiomax drip as Angiomax was used during the case when an ACT after getting 7000 of heparin was found to be subtherapeutic at 180. Continued ongoing management will be by the physicians at [facility]. [id number]/[facility] #: [id number] MTDD
--- NOTE | 2018-12-20 09:21 | CATH ---
CC: Dr. Jori Kaur, Cardiothoracic Surgery, [place]* CARDIAC CATHETERIZATION REPORT: DATE OF PROCEDURE: 12/20/18 INDICATION FOR PROCEDURE: The patient presents with acute ST segment elevation myocardial infarction. PROCEDURE: Coronary arteriography, left heart catheterization, left ventriculography. CONSENT: The patient was interviewed and examined in the emergency room, where the risks and benefits were explained. He understood them and wished to proceed. LABORATORY RESULTS OBTAINED DURING THE ONGOING CATHETERIZATION: Hemoglobin and hematocrit of 15.8 and 47 with a platelet count of 406,000. BUN and creatinine of 10 and 2.1. Sodium 139, potassium 3.7, chloride 102, bicarb 23. INR of 1.15. A CPK-MB of 2.7 and a troponin of 0.01. EQUIPMENT UTILIZED: 1. Right radial artery sheath, a 6-Bolivian Glidesheath. 2. Diagnostic coronary catheter - a 5-Bolivian TIG4 catheter and a 6-Bolivian VL3 curve left coronary guide catheter for the left coronary artery diagnostic study. The wire utilized was a 260 length Collins exchange length wire. 3. The left heart catheterization catheter 5-Bolivian TIG Performa radial catheter. MEDICATIONS GIVEN: Included radial artery cocktail consisting of 300 mcg of nitroglycerin and 3 mg of verapamil. The patient did not receive heparin in the cocktail as he already received 7000 units of heparin in the emergency room. Other medications given included Angiomax bolus and an Angiomax drip. PROCEDURE IN DETAIL: The patient was brought to the cardiovascular laboratory where a formal time-out was performed. The patient was prepped and draped in sterile fashion. Under ultrasound guidance, the right radial artery was cannulated and sheath was placed. Diagnostic coronary arteriography was performed utilizing the TIG4 catheter for the right coronary artery and a VL 3.0 curve 6-Bolivian guide catheter for left coronary artery. Central aortic pressure was recorded using pigtail catheter advanced the ascending aorta. The catheter was then passed across the aortic valve into the left ventricle where left ventricular pressure was recorded. Left ventriculography was performed utilizing 20 cc of Omnipaque dye at a rate of 10 cc/sec. The catheter was pulled back across the aortic valve to recheck gradient following an input. Of note, given the fact that SAMARIA-3 flow was seen down the left anterior descending artery except for the very distal area, which was small in caliber, the decision was made to hold at that point and discuss the findings with [facility] interventionalist and ultimately open heart surgeon. After discussion with [facility], decision was made to transfer the patient to [facility]. A pressure bag was placed to the radial artery sheath to keep it in place for the ambulance ride in case any acute intervention needed to take place when the patient arrived in [facility] having an access available. The total contrast used was a total of 70 cc, 25 cc of Omnipaque dye and 45 cc of Visipaque dye. The radiation exposure include 6.6 minutes of fluoro time. The air kerma radiation was 1071 milligray. The DAP radiation was 7245 microgray per meter squared. RESULTS: HEMODYNAMIC DATA: Left heart catheterization: Central aortic pressure recorded at 124/87 with a mean of 105. Left ventricular pressure 127 over left ventricular end- diastolic pressure of 26. LEFT VENTRICULOGRAPHY: - performed in the MALAGON projection revealed akinesis of the mid to distal anterior wall and apical region with preservation of the proximal anterior region with mild hypokinesis in preservation of the inferior wall with no wall motion abnormality. Overall, EF estimated at 40% to 45%. CORONARY ARTERIOGRAPHY: A. Right coronary artery - the right coronary artery was a dominant vessel supplying the PDA and posterior left ventricular branch. There were no significant lesions seen throughout the course of the vessel. B. Left coronary artery: 1. Left main - there was an area of distal mild disease seen in the distal left main with the appearance of either thrombus or dissected area with minimal stenosis. 2. Left anterior descending artery - the proximal ostial area of the left anterior descending artery had an eccentric hazy lesion noted suggesting either ruptured plaque with thrombus or a thrombus alone. In the CHAUNCEY caudal projection, this extended back to the left main with luminal reduction noted to be as much as 75% to 80%. The rest of the left anterior descending artery supplied 2 diagonal branches. The second of which had the finding suggesting a distal cutoff in its most distal portion small caliber vessel clearly barely 1 mm. The distal LAD also seemed to have a distal occlusion in a small caliber vessel of approximately 1 mm. 3. Circumflex artery- Nondominant vessel supplying a bifurcating trifurcational marginal branch and a smal caliber 1st and 2nd OM, leading to a low lying bifurcating posterior LV branch. There is no significant disease seen throughout the circumflex artery. OVERALL ASSESSMENT: Focal left ventricular systolic dysfunction as described above with the presence of significant disease involving the proximal to ostial LAD and possibly the distal left main. Given the hazy nature of this and knowing that the patient was a drug user, the possibility of perhaps spasm with thrombus formation on this could be reality versus a dissected plaque. Discussions were made with Dr. Hannah, the interventionalist of the [facility], who felt that given the patient being a drug addict and compliance would be a clear issue, stenting the left main would not be the best option and he felt that the better option would be a HASTINGS graft to at least the LAD. Of note, the distal left main does have some area involved with it and whether or not there is any indication to have to bypass the circumflex is difficult to assess given no significant obstruction in the distal left main. The other consideration would be toward aggressive anticoagulation over the next several days with repeat assessment for whether or not this significantly improved suggesting the possibility of just thrombus alone. Intravascular ultrasound might be needed at some point in time and I will leave that up to the discretion of [facility] physicians, who will be monitoring the patient. The patient's Angiomax drip was continued for the duration of the ride up to [facility] at which point the decision to switch to heparin therapy, which will be made by those physicians. [id number]/[facility] #: [id number] SANDRA
== END 2018-12-20 04:03 | disposition short-term general hospital (02) ==
LOC: ED 03:30 → CHICATH 04:03
PROVIDERS: ATTEND Internal Medicine Cardiovascular Disease
DX: I21.09 ST elevation (STEMI) myocardial infarction involving other coronary artery of anterior wall (principal); Z72.0 Tobacco use; F11.10 Opioid abuse, uncomplicated; R11.2 Nausea with vomiting, unspecified
CPT/HCPCS: 36415; 71045; 80053; 82550; 82553; 83605; 83721; 83880; 84484; 85025; 85347; 85610; 85730; 86850; 86900; 86901; 93005; 99285; A9270-GY; C1887; J0583; J1644; J2250; J2270; J2405; J3010; J3490

== ENCOUNTER 2018-12-24 14:32 | Emergency (ER) | payer MEDICAID ==
[2018-12-24 14:40] VITALS: BP 114/70
[2018-12-24] MEDS ORDERED: Ticagrelor* 90 MG TAB PO ONE (14:40)
--- NOTE | 2018-12-24 14:44 | ED ---
Complex/Multi-Sys Presentation - HPI Summary HPI Summary: Patient is a 43 y/o male who presents to the ED requesting a medication refill. As per nurses note, 5 days ago he had a cardiac catheterization at [place] and was discharged yesterday. Patient was prescribed 90 mg Brilinta BID. He was supposed to take the medication last night however did not have it yet. The prescription was re-sent to the pharmacy today, however Medicaid will no longer pay for it because there are two existing scripts. Patient was sent here by his field enumerator to receive the medication. He denies any CP, SOB, nausea, or fever. Patient is a former smoker. - History Of Current Complaint Chief Complaint: EDMedicationRefill Hx Obtained From: Patient, Medical Records Onset/Duration: Gradual Onset, Still Present Severity Currently: None Location: Negative Aggravating Factor(s): Nothing Alleviating Factor(s): Nothing Associated Signs And Symptoms: Negative: SOB, Chest Pain, Nausea, Fever Related History: Other - recent cardiac cath - Allergies/Home Medications Allergies/Adverse Reactions: Allergies Allergy/AdvReac Type Severity Reaction Status Date / Time No Known Allergies Allergy Verified 12/24/18 14:40 PMH/Surg Hx/FS Hx/Imm Hx Endocrine/Hematology History: Denies: Hx Anticoagulant Therapy, Hx Diabetes, Hx Thyroid Disease Cardiovascular History: Reports: Hx Coronary Artery Disease, Hx Hypertension, Other Cardiovascular Problems/Disorders - cardiac cath Denies: Hx Pacemaker/ICD Respiratory History: Denies: Hx Asthma, Hx Chronic Obstructive Pulmonary Disease (COPD) History: Denies: Hx Renal Disease Sensory History: Denies: Hx Contacts or Glasses, Hx Hearing Aid Opthamlomology History: Denies: Hx Contacts or Glasses Neurological History: Reports: Other Neuro Impairments/Disorders - PREVIOUS EPISODES OF LOW BACK PAIN YEARS AGO. Denies: Hx Dementia, Hx Seizures Psychiatric History: Reports: Hx Substance Abuse - heroin clean X 1 year' Denies: Hx of Violent Episodes Against Others Infectious Disease History: No Infectious Disease History: Reports: Hx Hepatitis Denies: Hx Clostridium Difficile, Hx Human Immunodeficiency Virus (HIV), Hx Shingles, Hx Tuberculosis, Traveled Outside the [place] in Last 30 Days - Family History Known Family History: Positive: Cardiac Disease Negative: Diabetes - Social History Alcohol Use: None Hx Substance Use: Yes Substance Use Type: Reports: Heroin Substance Use Comment - Amount & Last Used: hx of heroin abuse, 7 days Hx Tobacco Use: Yes Smoking Status (MU): Former Smoker Review of Systems Negative: Fever Negative: Chest Pain Negative: Shortness Of Breath Negative: Nausea All Other Systems Reviewed And Are Negative: Yes Physical Exam - Summary Physical Exam Summary: Appearance: well appearing, no pain distress Skin: warm, dry, reflects adequate perfusion Head/face: normal Eyes: EOMI, GLEN ENT: mucous membranes moist Neck: supple, non-tender Respiratory: CTA, breath sounds present Cardiovascular: RRR, pulses symmetrical Abdomen: non-tender, soft Bowel Sounds: present Musculoskeletal: normal, strength/ROM intact Neuro: normal, sensory motor intact, A&Ox3 Triage Information Reviewed: Yes Vital Signs On Initial Exam: Initial Vitals Temp Pulse Resp BP Pulse Ox 98.1 F 82 18 114/70 95 12/24/18 14:35 12/24/18 14:35 12/24/18 14:35 12/24/18 14:35 12/24/18 14:35 Vital Signs Reviewed: Yes Diagnostics - Vital Signs Vital Signs Temp Pulse Resp BP Pulse Ox 12/24/18 14:35 98.1 F 82 18 114/70 95 - Laboratory Lab Statement: Any lab studies that have been ordered have been reviewed, and results considered in the medical decision making process. Complex Multi-Symp Course/Dx Course Of Treatment: Nurse's notes reviewed. Patient recently with heart catheterization and possible stenting placed on Brilinta. He had not been able to fill that for some logistical reason with the pharmacy. He was given 1 dose here and another for tonight. He will be able to fill this in the morning. - Diagnoses Provider Diagnoses: Coronary artery disease, Medication refill Discharge - Sign-Out/Discharge Documenting (check all that apply): Patient Departure - Discharge Patient Received Moderate/Deep Sedation with Procedure: No - Discharge Plan Condition: Good Disposition: HOME Patient Education Materials: Medicine Refill (ED) Print Language: TOGOLESE Referrals: [facility] [Outside] [facility] PHYSICIAN REFERRAL [Outside] Additional Instructions: DO NOT MISS YOUR BRILINTA doses. Fill the prescription first thing in the morning. Return if worse, new symptoms or other concerns. - Billing Disposition and Condition Condition: GOOD Disposition: Home - Attestation Statements Document Initiated by Scribe: Yes Documenting Scribe: Anne Can Provider For Whom Scribe is Documenting (Include Credential): Jeff Patel MD Scribe Attestation: IAnne, scribed for Jeff Patel MD on 12/24/18 at 1723. Scribe Documentation Reviewed: Yes Provider Attestation: The documentation as recorded by the scribe, Anne Can accurately reflects the service I personally performed and the decisions made by me, Jeff Patel MD Status of Scribe Document: Viewed
== END 2018-12-24 14:59 | disposition home or self-care (01) ==
LOC: ED 14:32
DX: Z76.0 Encounter for issue of repeat prescription (principal); I25.10 Atherosclerotic heart disease of native coronary artery without angina pectoris; I10 Essential (primary) hypertension; Z87.891 Personal history of nicotine dependence
CPT/HCPCS: 99282; A9270-GY

== ENCOUNTER 2018-12-26 22:18 | Emergency (ER) | payer MEDICAID ==
[2018-12-26] MEDS ORDERED: Aspirin 81 mg CHEW TAB* 81 MG TAB.CHEW PO ONE (22:28)
[2018-12-26 22:53] LABS: ABS Basophils 0.1 10^3/ul (0-0.2); ABS Eosinophils 0.4 10^3/ul (0-0.6); ABS Lymphocytes 2.5 10^3/ul (1.0-4.8); ABS Monocytes 1.1 10^3/ul (0-0.8); Eosinophil % 4.2 %; Hematocrit 40 % (42-52); Hemoglobin 13.6 g/dL (14.0-18.0); Lymphocyte % 27.6 %; Mean Corpuscular HGB Conc 34 g/dL (31-36); Mean Corpuscular Hemoglobin 32 pg (27-31); Mean Corpuscular Volume 92 fL (80-94); Mean Platelet Volume 7.9 fL (7.4-10.4); Nucleated Red Blood Cells % 0.1; Platelet Count 317 10^3/uL (150-450); Red Blood Count 4.28 10^6 /uL (4.18-5.48); Red Cell Distribution Width 13 % (10.5-15); White Blood Count 9.2 10^3/uL (3.5-10.8)
[2018-12-26 22:59] LABS: INR 1.26 (0.82-1.09)
[2018-12-26 23:11] LABS: ALT 52 U/L (7-52); AST 34 U/L (13-39); Albumin 4.2 g/dL (3.2-5.2); Albumin/Globulin Ratio 1.2 (1-3); Alkaline Phosphatase 82 U/L (34-104); Anion Gap 6 mmol/L (2-11); BUN/Creatinine Ratio 11.2 (8-20); Blood Urea Nitrogen 10 mg/dL (6-24); CO2 Carbon Dioxide 28 mmol/L (22-32); Calcium 8.9 mg/dL (8.6-10.3); Chloride 103 mmol/L (101-111); EGFR African American 113.4 (>60); EGFR Non-African American 93.7 (>60); Globulin 3.5 g/dL (2-4); Glucose 97 mg/dL (70-100); Potassium 3.8 mmol/L (3.5-5.0); Sodium 137 mmol/L (135-145); Total Protein 7.7 g/dL (6.4-8.9)
[2018-12-26 23:20] LABS: Troponin I 0.05 ng/mL (<0.04)
[2018-12-26] MEDS ORDERED: NS 0.9% 1000 ML** 1,000 ML IV ONE (23:21)
--- NOTE | 2018-12-26 23:27 | ED ---
HPI Chest Pain - HPI Summary HPI Summary: Pt is a 43 y/o male who presents to the ED c/o palpitations. Around 22:00 this evening he took his Brilinta pill. Pt then had a 3-second episode of racing palpitations and chills, but denies any CP. On 12/20/18 he had a STEMI and had cardiac stents placed. He denies any leg pain at the surgical site. - History of Current Complaint Time Seen by Provider: 12/26/18 22:22 Hx Obtained From: Patient Onset/Duration: Started Hours Ago - 22:00, Resolved Timing: Lasting Seconds Current Severity: None Pain Intensity: 0 Pain Scale Used: 0-10 Numeric Character: Fast Alleviating Factor(s): Spontaneous Resolution Associated Signs and Symptoms: Positive: Chills, Palpitations. Negative: Chest Pain - Additional Pertinent History Primary Care Physician: [id number] - Allergy/Home Medications Allergies/Adverse Reactions: Allergies Allergy/AdvReac Type Severity Reaction Status Date / Time No Known Allergies Allergy Verified 12/24/18 14:40 PMH/Surg Hx/FS Hx/Imm Hx Endocrine/Hematology History: Denies: Hx Anticoagulant Therapy, Hx Diabetes, Hx Thyroid Disease Cardiovascular History: Reports: Hx Coronary Artery Disease, Hx Hypertension, Other Cardiovascular Problems/Disorders - cardiac cath Denies: Hx Pacemaker/ICD Respiratory History: Denies: Hx Asthma, Hx Chronic Obstructive Pulmonary Disease (COPD) History: Denies: Hx Renal Disease Sensory History: Denies: Hx Contacts or Glasses, Hx Hearing Aid Opthamlomology History: Denies: Hx Contacts or Glasses Neurological History: Reports: Other Neuro Impairments/Disorders - PREVIOUS EPISODES OF LOW BACK PAIN YEARS AGO. Denies: Hx Dementia, Hx Seizures Psychiatric History: Reports: Hx Substance Abuse - heroin clean X 1 year' Denies: Hx of Violent Episodes Against Others Infectious Disease History: No Infectious Disease History: Reports: Hx Hepatitis Denies: Hx Clostridium Difficile, Hx Human Immunodeficiency Virus (HIV), Hx Shingles, Hx Tuberculosis, Traveled Outside the [place] in Last 30 Days - Family History Known Family History: Positive: Cardiac Disease Negative: Diabetes - Social History Alcohol Use: None Hx Substance Use: Yes Substance Use Type: Reports: Heroin Substance Use Comment - Amount & Last Used: hx of heroin abuse, 7 days Hx Tobacco Use: Yes Smoking Status (MU): Light Every Day Tobacco Smoker Review of Systems Positive: Chills Positive: Palpitations. Negative: Chest Pain All Other Systems Reviewed And Are Negative: Yes Physical Exam - Summary Physical Exam Summary: Appearance: well appearing, no pain distress Skin: warm, dry, reflects adequate perfusion Head/face: normal Eyes: EOMI, GLEN ENT: mucous membranes moist Neck: supple, non-tender Respiratory: CTA, breath sounds present Cardiovascular: RRR, pulses symmetrical Abdomen: non-tender, soft Bowel Sounds: present Musculoskeletal: normal, strength/ROM intact Neuro: normal, sensory motor intact, A&Ox3 Triage Information Reviewed: Yes Vital Signs On Initial Exam: Initial Vitals Temp Pulse Resp BP Pulse Ox 97.1 F 88 16 110/60 97 12/26/18 22:21 12/26/18 22:21 12/26/18 22:21 12/26/18 22:21 12/26/18 22:21 Vital Signs Reviewed: Yes Diagnostics - Vital Signs Vital Signs Temp Pulse Resp BP Pulse Ox 12/26/18 22:40 87 12 104/70 94 12/26/18 22:39 15 12/26/18 22:21 97.1 F 88 16 110/60 97 - Laboratory Lab Results: Lab Results 12/26/18 12/26/18 12/26/18 Range/Units 22:45 22:45 22:45 WBC 9.2 (3.5-10.8) 10^3/uL RBC 4.28 (4.18-5.48) 10^6 /uL Hgb 13.6 L (14.0-18.0) g/dL Hct 40 L (42-52) % MCV 92 (80-94) fL MCH 32 H (27-31) pg MCHC 34 (31-36) g/dL RDW 13 (10.5-15) % Plt Count 317 (150-450) 10^3/uL MPV 7.9 (7.4-10.4) fL Neut % (Auto) 54.8 % Lymph % (Auto) 27.6 % Floyd % (Auto) 12.4 % Eos % (Auto) 4.2 % Baso % (Auto) 1.0 % Absolute Neuts (auto) 5.0 (1.5-7.7) 10^3/ul Absolute Lymphs (auto) 2.5 (1.0-4.8) 10^3/ul Absolute Monos (auto) 1.1 H (0-0.8) 10^3/ul Absolute Eos (auto) 0.4 (0-0.6) 10^3/ul Absolute Basos (auto) 0.1 (0-0.2) 10^3/ul Absolute Nucleated RBC 0.0 10^3/ul Nucleated RBC % 0.1 INR (Anticoag Therapy) (0.82-1.09) Sodium 137 (135-145) mmol/L Potassium 3.8 (3.5-5.0) mmol/L Chloride 103 (101-111) mmol/L Carbon Dioxide 28 (22-32) mmol/L Anion Gap 6 (2-11) mmol/L BUN 10 (6-24) mg/dL Creatinine 0.89 (0.67-1.17) mg/dL Est GFR ( Amer) 113.4 (>60) Est GFR (Non-Af Amer) 93.7 (>60) BUN/Creatinine Ratio 11.2 (8-20) Glucose 97 (70-100) mg/dL Lactic Acid 0.8 (0.5-2.0) mmol/L Calcium 8.9 (8.6-10.3) mg/dL Total Bilirubin 0.40 (0.2-1.0) mg/dL AST 34 (13-39) U/L ALT 52 (7-52) U/L Alkaline Phosphatase 82 (34-104) U/L Troponin I 0.05 H* (<0.04) ng/mL B-Natriuretic Peptide (<=100) pg/mL Total Protein 7.7 (6.4-8.9) g/dL Albumin 4.2 (3.2-5.2) g/dL Globulin 3.5 (2-4) g/dL Albumin/Globulin Ratio 1.2 (1-3) 12/26/18 12/26/18 Range/Units 22:45 22:45 WBC (3.5-10.8) 10^3/uL RBC (4.18-5.48) 10^6 /uL Hgb (14.0-18.0) g/dL Hct (42-52) % MCV (80-94) fL MCH (27-31) pg MCHC (31-36) g/dL RDW (10.5-15) % Plt Count (150-450) 10^3/uL MPV (7.4-10.4) fL Neut % (Auto) % Lymph % (Auto) % Floyd % (Auto) % Eos % (Auto) % Baso % (Auto) % Absolute Neuts (auto) (1.5-7.7) 10^3/ul Absolute Lymphs (auto) (1.0-4.8) 10^3/ul Absolute Monos (auto) (0-0.8) 10^3/ul Absolute Eos (auto) (0-0.6) 10^3/ul Absolute Basos (auto) (0-0.2) 10^3/ul Absolute Nucleated RBC 10^3/ul Nucleated RBC % INR (Anticoag Therapy) 1.26 H (0.82-1.09) Sodium (135-145) mmol/L Potassium (3.5-5.0) mmol/L Chloride (101-111) mmol/L Carbon Dioxide (22-32) mmol/L Anion Gap (2-11) mmol/L BUN (6-24) mg/dL Creatinine (0.67-1.17) mg/dL Est GFR ( Amer) (>60) Est GFR (Non-Af Amer) (>60) BUN/Creatinine Ratio (8-20) Glucose (70-100) mg/dL Lactic Acid (0.5-2.0) mmol/L Calcium (8.6-10.3) mg/dL Total Bilirubin (0.2-1.0) mg/dL AST (13-39) U/L ALT (7-52) U/L Alkaline Phosphatase (34-104) U/L Troponin I (<0.04) ng/mL B-Natriuretic Peptide 31 (<=100) pg/mL Total Protein (6.4-8.9) g/dL Albumin (3.2-5.2) g/dL Globulin (2-4) g/dL Albumin/Globulin Ratio (1-3) Result Diagrams: 12/26/18 22:45 12/26/18 22:45 Lab Statement: Any lab studies that have been ordered have been reviewed, and results considered in the medical decision making process. - Radiology CXR Radiology Interpretation Completed By: ED Physician Summary of Radiographic Findings: No acute pulmonary disease. Pending official radiology report. - EKG 22:20 Cardiac Rate: NL - 85 bpm EKG Rhythm: Sinus Rhythm EKG Comparison: Other - Similar to EKG on 11/30/18 other than new biphasic T waves in T3 Summary of EKG Findings: Nl axis, nl intervals, subtle <0.[address] elevation in V1-V2 without reciprocal depressions, biphasic T waves in T3 Re-Evaluation - Re-Evaluation First Eval Re-Evaluation Time: 23:24 Change: Improved Comment: Pt is asymptomatic, he states he came to the ED because he was scared. Chest Pain Course/Dx - Course Course Of Treatment: Patient with recent ST elevation NH requiring stenting who presents with 3 seconds of rapid heartbeat after taking his medications tonight. He has not had recurrence of symptoms and never had chest pain. His troponin is elevated today but likely is trending downward from his recent cardiac event. He remained stable throughout his course here without recurrence of symptoms. I discussed this with the hospitalist who agrees that he can be safely discharged. He will follow-up with his oncology account specialist - Chest Pain Differential Diagnosis/HQI/PQRI: Other: - SVT, ectopy, A. fib, SVT - Diagnoses Provider Diagnoses: Palpitations, Adjustment disorder, History of coronary artery disease - Provider Notifications Discussed Care Of Patient With: Louie Mullins Time Discussed With Above Provider: 23:30 Instructed by Provider To: Other - He agrees the pt can be discharged. Discharge - Sign-Out/Discharge Documenting (check all that apply): Patient Departure - Discharge Patient Received Moderate/Deep Sedation with Procedure: No - Discharge Plan Condition: Improved Disposition: HOME Patient Education Materials: Heart Palpitations (ED) Print Language: ENGLISH Referrals: [facility] [Outside] [facility]YSICIAN REFERRAL [Outside] Additional Instructions: [facility] and with your oncology account specialist as directed. Return with chest pain, palpitations, worse, new symptoms or other concerns. Take all medications as prescribed. - Billing Disposition and Condition Condition: IMPROVED Disposition: Home - Attestation Statements Document Initiated by Scribe: Yes Documenting Scribe: Anne Can Provider For Whom Scribe is Documenting (Include Credential): Jeff Patel MD Scribe Attestation: Anne Gonzalez, scribed for Jeff Patel MD on 12/27/18 at 0313. Scribe Documentation Reviewed: Yes Provider Attestation: The documentation as recorded by the scribe, Anne Can accurately reflects the service I personally performed and the decisions made by me, Jeff Patel MD Status of Scribe Document: Viewed
[2018-12-26 23:33] VITALS: BP 96/60
== END 2018-12-26 23:32 | disposition home or self-care (01) ==
LOC: ED 22:18
DX: R00.2 Palpitations (principal); F43.20 Adjustment disorder, unspecified; I25.10 Atherosclerotic heart disease of native coronary artery without angina pectoris; R94.31 Abnormal electrocardiogram [ECG] [EKG]; I10 Essential (primary) hypertension; I25.2 Old myocardial infarction; F17.210 Nicotine dependence, cigarettes, uncomplicated; Z95.5 Presence of coronary angioplasty implant and graft
CPT/HCPCS: 36415; 71045; 80053; 83605; 83880; 84484; 85025; 85610; 93005; 99282; A9270-GY

== ENCOUNTER 2018-12-28 20:53 | Emergency (ER) | payer MEDICAID ==
--- OUTSIDE RECORDS SUMMARY | 2018-12-28 21:11 | XMS REPORT | Continuity of Care Document ---
:1975 External Reference #:[id number] Author Name Bailey Scanlon Care Team Providers Name Role Phone Ramy Hyman MD Primary Care Physician Unavailable Payers Date Identification Numbers Payment Provider Subscriber Expires: 2018 Policy Number: [id number] [place] José Francisco PayID: [id number] [address] [place] [address] Effective: 2008 Policy Number: [id number] Medicaid José Francisco Expires: 2017 Group Name: 1 1 [address] PayID: [id number] [place] [address] Policy Number: [id number] Medicaid José Francisco Group Name: 1 1 [address] PayID: [id number] [place] [address] Problems Active Problems Provider Date Methicillin resistant Staphylococcus aureus Ramy Hyman M.D. Onset: Hand joint pain Ramy Hyman M.D. Onset: 08/11/2017 Low back pain Ramy Hyman M.D. Onset: 08/11/2017 Morbid obesity Ramy Hyman M.D. Onset: 08/11/2017 Chronic hepatitis C Ramy Hyman M.D. Onset: 08/11/2017 Mild recurrent major depression Ramy Hyman M.D. Onset: 10/20/2017 Family History Date Family Member(s) Observation Comments Mother Arthritis Social History Type Date Description Comments Sex Unknown ETOH Use Denies alcohol use Tobacco Use Start: Unknown Patient is a current smoker, smokes every day Recreational Drug Use Denies Drug Use Smoking Status Reviewed: 12/27/17 Patient is a current smoker, smokes every day Allergies, Adverse Reactions, Alerts Description No Known Drug Allergies Medications Active Medications SIG Qnty Indications Ordering Provider Date Celexa 1 by mouth every Unknown 20mg Tablets day Mobic once daily with Unknown 15mg Tablets food Remeron take 1 tablet Unknown 30mg Tablets every day at bedtime Prilosec OTC 1 by mouth every Unknown 20mg Tablets day Subflakito 1 strip sl once a Unknown 12-3mg Film day History Medications Tylenol With 1 tab by mouth 30tabs M54.5 Ramy Hyman, 10/20/2017 - Codeine #3 every 12 hours as M.DMahesh 10/26/2017 needed 300-30mg Tablets Neosporin Original apply as directed 1oz Ruby Puentes, 07/04/2017 - q day to open MD 10/19/2017 3.5-400-5000 wound Ointment 4X4 Sterile Gauze to open wound as 20units Ruby Puentes, 07/04/2017 - Pads directed once MD 10/19/2017 daily and as needed Bactrim DS 1 by mouth twice Unknown - a day Unknown 800-160mg Tablets Vital Signs Date Vital Result Comment 12/27/2017 11:23am Height 65 inches 5'5" Weight 262.25 lb Heart Rate 80 /min BP Systolic Sitting 110 mmHg BP Diastolic Sitting 62 mmHg Respiratory Rate 14 /min Body Temperature 98.2 F BMI (Body Mass Index) 43.6 kg/m2 12/06/2017 9:25am Height 65 inches 5'5" Weight 270.00 lb Heart Rate 96 /min BP Systolic 125 mmHg BP Diastolic 60 mmHg Body Temperature 98.2 F O2 % BldC Oximetry 95 % BMI (Body Mass Index) 44.9 kg/m2 10/20/2017 4:13pm Height 65 inches 5'5" Weight 267.00 lb Heart Rate 88 /min BP Systolic 120 mmHg BP Diastolic 70 mmHg O2 % BldC Oximetry 96 % BMI (Body Mass Index) 44.4 kg/m2 08/11/2017 3:24pm Weight 258.25 lb Heart Rate 106 /min BP Systolic Sitting 128 mmHg BP Diastolic Sitting 70 mmHg Body Temperature 96.9 F O2 % BldC Oximetry 92 % 07/15/2017 10:30am Heart Rate 100 /min Respiratory Rate 18 /min Body Temperature 98.5 F 07/11/2017 12:43pm Heart Rate 126 /min Respiratory Rate 18 /min Body Temperature 97.3 F 07/04/2017 11:22am Height 65 inches 5'5" Weight 226.00 lb Heart Rate 102 /min BP Systolic 138 mmHg BP Diastolic 78 mmHg Respiratory Rate 16 /min Body Temperature 97.8 F BMI (Body Mass Index) 37.6 kg/m2 Results Test Date Facility Test Result H/L Range Note Laboratory test [facility] Poc Activated 180 seconds 1 finding [address] Clotting Time [place], [place] [id number] [phone] Laboratory test [facility] Hepatitis B Equivocal Nonreactive 2 finding [address] [place] [address] [phone] Hepatitis B Core AB Total Positive Abnormal Negative 3 Hepatitis B Surface Ag Nonreactive Nonreactive Laboratory 08/16/2017 [facility] Rheumatoid <15 IU/mL <15 4 test finding [address] Factor [place], [place] [id number] [phone] Laboratory 08/16/2017 [facility] Hepatitis C Undetected Undetected 5 test finding [address] Rna Quant IU/[place] [address] [phone] Aerobic 07/13/2009 [facility] Aerobic NG5 6 Culture Bottle [address] Culture Bottle [place], [place] [id number] [phone] Anaerobic 07/13/2009 [facility] Anaerobic NG5 7 Culture Bottle [address] [address] [phone] Laboratory 07/13/2009 [facility] Hepatitis B Positive Negative 8 test finding [address] Core AB, Total [place], [place] [address] [phone] Hepatitis B Surface Ag NEGATIVE Negative Hepatitis B Surface AB POSITIVE Abnormal Negative Hepatitis C Antibody IC POSITIVE Abnormal Negative Laboratory test 07/13/2009 [facility] Hepatitis B NEGATIVE Negative [address] [place] [address] [phone] Hepatitis B Surface AB NEGATIVE Negative 10 Hepatitis C Antibody IC POSITIVE Abnormal Negative 1 Digital Product Specialist: [id number] Reference Range: 74-125 seconds 2 Please obtain new specimen and retest. 3 If clinically indicated, testing for Hepatitis B Core IgM antibody is necessary to differentiate between acute and past HBV infection. Test Performed by: [facility] - [address] [address] 4 Test Performed by: [facility] - [address] [address] 5 Result in log IU/mL is Undetected. ADDITIONAL INFORMATION The quantification range of this assay is 15 to 100,000,000 IU/mL (1.18 log to 8.00 log IU/mL). Testing was performed using the katie HCV test ([employer] with the katie [employer] System. Test Performed by: [facility] [place] [address] 6 NO GROWTH AFTER 5 DAYS 7 NO GROWTH AFTER 5 DAYS 8 If clinically indicated, testing for Hepatitis B Core IgM antibody is necessary to confirm an acute or recent infection. Test Performed by: [facility] [address] [place] [address] Research And Development Manager: Paramjit Kolb III, M.D. 9 SUBMITTED TO [facility] [employer]IA [employer] SYSTEM BY TAMARA at 1542 on 07/23/09. VERBAL TO CAROLYN BY MARCO at 1507 on 07/23/09. Results read back accurately. 10 CORRECTED RESULT! WRONG RESULT WAS POSITIVE Procedures Date Code Description Status 12/20/2018 29626 Left Heart Cath. Incl S/I Coronaries, Angio S/I V Gram If Completed Done 07/13/2009 43321 ECHO Transthorasic Realtime 2D W Doppler & Color Flow Hosp Completed Encounters Type Date Location Provider Dx Diagnosis Office Visit 12/20/2018 [facility] Rogerio Flores, I21.02 Stemi involving 12:02p Of [employer] AT [facility] Mariaelena, FACC, left anterior FSCAI descending coronary artery T40.1x1A Poisoning by heroin, accidental (unintentional), init encntr F11.10 Opioid abuse, uncomplicated Z72.0 Tobacco use I25.10 Athscl heart disease of [place] coronary artery w/o ang pctrs [facility]2 Chronic viral Infectious Mariaelena Nix hepatitis C Diseases Office Visit 12/06/2017 9:40a [facility] Internal [place] B16.9 Acute hepatitis Medicine - [place] Mariaelena Hyman B w/o Rd delta-agent and without hepatic coma F33.0 Major depressive disorder, recurrent, mild M54.5 Low back pain Office Visit 10/20/2017 4:20p [facility] Internal Ramy Boogie, Z00.00 Encntr for Medicine - M.D. general adult [place] [address] medical exam w/o abnormal findings E66.01 Morbid (severe) obesity due to excess calories F33.0 Major depressive disorder, recurrent, mild B16.9 Acute hepatitis B w/o delta-agent and without hepatic coma M54.5 Low back pain Office Visit 08/11/2017 3:20p [facility] Internal [place] Boogie, M54.5 Low back Medicine - [place] M.DMahesh pain Rd M25.549 Pain in joints of unspecified hand B18.2 Chronic viral hepatitis C E66.01 Morbid (severe) obesity due to excess calories A49.02 Methicillin resis staph infection, unsp site Office Visit 07/15/2017 10:30a Surgical Ben De Souza L02.31 [facility] Ta abscess of [facility] buttock Office Visit 07/11/2017 1:00p Surgical Jackie Jacques L02.31 [facility] Pena abscess of [facility] buttock Z48.01 Encounter for change or removal of surgical wound dressing Office Visit 07/04/2017 11:15a Surgical Ben De Souza Z48.01 Encounter for [facility] Ta change or [facility] removal of surgical wound dressing L02.31 Cutaneous abscess of buttock Office Visit 06/30/2017 Surgical Bahgat L02.31 Cutaneous 7:00a [facility]on abscess of buttock Office Visit 06/30/2017 [facility] Devonte Samuel MD L02.31 Cutaneous 2:42p Assoc,pc abscess of Hospitalists buttock R76.8 Other specified abnormal immunological findings in serum F41.8 Other specified anxiety disorders Office Visit 06/29/2017 2:41p [facility] Klaudia L02.31 [facility] Assoc,rosie Wilkins D.O. abscess of [facility] buttock R76.8 Other specified abnormal immunological findings in serum F41.8 Other specified anxiety disorders Office Visit 07/19/2009 [facility] Leandro Black, 292.89 Drug Induced 12:15a rosie Blankenship M.D. Mental Disorder Hospitalists Other Office Visit 07/14/2009 [facility] Leandro Black, 780.60 Fever, 3:30a rosie Blankenship M.D. Unspecified Hospitalists Office Visit 06/12/2009 [facility] Chemo Dave 780.60 Fever, 12:15a rosie Blankenship M.D. Unspecified Hospitalists Hospitalist Plan of Treatment Future Appointment(s):01/01/2019 2:00 pm - Sergo López DO FAC at [facility]12/27/2017 - Renato Nix M.D.B18.2 Chronic viral hepatitis CComments:HCV fu VL negative; suggests past cleared infection; will recheck to confirm. Hep B serology suggests past cleared infection, except for the equivacol c IgM which is probably a false result; will check HBV DNA to confirm
--- NOTE | 2018-12-28 22:49 | ED ---
HPI Chest Pain - HPI Summary HPI Summary: 43 year old M presenting to [facility] with a chief complaint of mid-sternal chest pain since eating an apple and walking up the stairs in his home at 21:00 today. The patient initially rated the pain 7/10 in severity. Symptoms aggravated by nothing. Symptoms alleviated by nothing. Patient reports shortness of breath. Patient states that he does not have chest pain or shortness of breath while sitting in the stretcher. Patient had STEMI on 12/20/18 and was transferred to [place]. Patient was discharged on 12/23/18. Patient came to ED on 12/26/18 for similar symptoms. Patient is a former drug user. Patient denies drug and alcohol use today. Patient states he has been on Suboxone for 2 years. - History of Current Complaint Chief Complaint: EDChestPainROMI Time Seen by Provider: 12/28/18 22:40 Hx Obtained From: Patient Onset/Duration: Started Hours Ago - 2, Resolved Timing: Constant Initial Severity: Moderate - 7/10 Current Severity: None Pain Intensity: 0 Pain Scale Used: 0-10 Numeric Chest Pain Location: Mid Sternal Aggravating Factor(s): Nothing Alleviating Factor(s): Nothing Associated Signs and Symptoms: Positive: Shortness of Breath - Additional Pertinent History Primary Care Physician: [id number] - Allergy/Home Medications Allergies/Adverse Reactions: Allergies Allergy/AdvReac Type Severity Reaction Status Date / Time No Known Allergies Allergy Verified 12/28/18 21:03 Home Medications: Home Medications Aspirin 81 mg CHEW TAB* [Aspirin Low Dose TAB*] 81 mg PO DAILY 12/29/18 [ History Confirmed 12/29/18] Atorvastatin* [Lipitor*] 80 mg PO DAILY 12/29/18 [History Confirmed 12/29/18] Lisinopril TAB* [Prinivil TAB*] 5 mg PO DAILY 12/29/18 [History Confirmed ] Metoprolol Succinate XL TAB* [Toprol XL TAB*] 50 mg PO DAILY 12/29/18 [History Confirmed 12/29/18] Nitroglycerin TAB 0.4 MG* 0.4 mg SL Q5M PRN 12/29/18 [History Confirmed 12/29/18 ] Omeprazole CAP (NF) [Prilosec CAP* 20 MG] 20 mg PO DAILY 12/29/18 [History Confirmed 12/29/18] Ticagrelor* [Brilinta*] 90 mg PO BID 12/29/18 [History Confirmed 12/29/18] PMH/Surg Hx/FS Hx/Imm Hx Previously Healthy: No Endocrine/Hematology History: Denies: Hx Anticoagulant Therapy, Hx Diabetes, Hx Thyroid Disease Cardiovascular History: Reports: Hx Coronary Artery Disease, Hx Hypertension, Other Cardiovascular Problems/Disorders - cardiac cath Denies: Hx Pacemaker/ICD Respiratory History: Denies: Hx Asthma, Hx Chronic Obstructive Pulmonary Disease (COPD) History: Denies: Hx Renal Disease Sensory History: Denies: Hx Contacts or Glasses, Hx Hearing Aid Opthamlomology History: Denies: Hx Contacts or Glasses Neurological History: Reports: Other Neuro Impairments/Disorders - PREVIOUS EPISODES OF LOW BACK PAIN YEARS AGO. Denies: Hx Dementia, Hx Seizures Psychiatric History: Reports: Hx Substance Abuse - heroin clean X 1 year' Denies: Hx of Violent Episodes Against Others - Surgical History Surgery Procedure, Year, and Place: Laproscopic cholecystectomy Infectious Disease History: No Infectious Disease History: Reports: Hx Hepatitis Denies: Hx Clostridium Difficile, Hx Human Immunodeficiency Virus (HIV), Hx Shingles, Hx Tuberculosis, Traveled Outside the [place] in Last 30 Days - Family History Known Family History: Positive: Cardiac Disease Negative: Diabetes - Social History Alcohol Use: None Hx Substance Use: Yes Substance Use Type: Reports: Heroin Substance Use Comment - Amount & Last Used: patient reports no use -- is on Suboxone Hx Tobacco Use: Yes Smoking Status (MU): Former Smoker Review of Systems Positive: Chest Pain Positive: Shortness Of Breath All Other Systems Reviewed And Are Negative: Yes Physical Exam - Summary Physical Exam Summary: VITAL SIGNS: Reviewed. GENERAL: Patient is a well-developed and nourished MALE who is lying comfortable in the stretcher. Patient is not in any acute respiratory distress. Patient does not complain of any symptoms. HEAD AND FACE: No signs of trauma. No ecchymosis, hematomas or skull depressions. No sinus tenderness. EYES: PERRLA, EOMI x 2, No injected conjunctiva, no nystagmus. EARS: Hearing grossly intact. Ear canals and tympanic membranes are within normal limits. MOUTH: Oropharynx within normal limits. NECK: Supple, trachea is midline, no adenopathy, no JVD, no carotid bruit, no c- spine tenderness, neck with full ROM CHEST: Symmetric, no tenderness at palpation LUNGS: Clear to auscultation bilaterally. No wheezing or crackles. CVS: Regular rate and rhythm, S1 and S2 present, no murmurs or gallops appreciated. ABDOMEN: Soft, non-tender. No signs of distention. No rebound no guarding, and no masses palpated. Bowel sounds are normal. EXTREMITIES: FROM in all major joints, no edema, no cyanosis or clubbing. NEURO: Alert and oriented x 3. No acute neurological deficits. Speech is normal and follows commands. SKIN: Dry and warm Triage Information Reviewed: Yes Vital Signs On Initial Exam: Initial Vitals Temp Pulse Resp BP Pulse Ox 98.4 F 92 16 110/70 96 12/28/18 20:58 12/28/18 20:58 12/28/18 20:58 12/28/18 20:58 12/28/18 20:58 Vital Signs Reviewed: Yes Diagnostics - Vital Signs Vital Signs Temp Pulse Resp BP Pulse Ox 12/28/18 20:58 98.4 F 92 16 110/70 96 - Laboratory Result Diagrams: 12/28/18 23:09 12/28/18 23:09 Lab Statement: Any lab studies that have been ordered have been reviewed, and results considered in the medical decision making process. - Radiology CXR Radiology Interpretation Completed By: ED Physician Summary of Radiographic Findings: No acute process. Pending official report. - EKG 2057 Cardiac Rate: NL - 90 BPM EKG Rhythm: Sinus Rhythm Summary of EKG Findings: He has minimal ST elevations in the anterior leads. No change from 12/26/18. Chest Pain Course/Dx - Course Course Of Treatment: 43 year old M complains of mid-sternal chest pain and shortness of breath since 21:00 today. The patient does not have any symptoms upon examination. CXR shows no acute process. Test results show no significant abnormalities. EKG shows no change from 12/26/18. According to patient's nurse. Patient did go to the bathroom. When patient returned to his room. Patient did have low respiratory rate, low O2 saturation ( in the 80s). Patient did have pinpoint pupil. Patient was given Narcan intranasally. Patient improved immediately, vomited in the floor. Shortly after patient walked out of the emergency room, patient stated that his leaving and he did not stop to talk to anybody of the emergency room staff. Patient eloped out of the emergency room. - Diagnoses Provider Diagnoses: Chest pain Discharge - Sign-Out/Discharge Documenting (check all that apply): Patient Departure - Elope Patient Received Moderate/Deep Sedation with Procedure: No - Discharge Plan Condition: Stable Disposition: ELOPEMENT Referrals: No Primary Care Phys,NOPCP [Primary Care Provider] - - Billing Disposition and Condition Condition: STABLE Disposition: Elopement - Attestation Statements Document Initiated by Scribe: Yes Documenting Scribe: María Elena Mejia Provider For Whom Jayibe is Documenting (Include Credential): Chiqui Novoa MD Scribe Attestation: María Elena Gonzalez, scribed for Chiqui Novoa MD on 12/29/18 at 0619. Scribe Documentation Reviewed: Yes Provider Attestation: The documentation as recorded by the scribeMaría Elena accurately reflects the service I personally performed and the decisions made by , Chiqui Novoa MD Status of Scribe Document: Viewed
[2018-12-28 23:23] LABS: Hematocrit 41 % (42-52); Hemoglobin 13.8 g/dL (14.0-18.0); Mean Corpuscular HGB Conc 34 g/dL (31-36); Mean Corpuscular Hemoglobin 32 pg (27-31); Mean Corpuscular Volume 94 fL (80-94); Red Blood Count 4.37 10^6 /uL (4.18-5.48); Red Cell Distribution Width 13 % (10.5-15); White Blood Count 8.5 10^3/uL (3.5-10.8)
[2018-12-28 23:25] LABS: INR 1.15 (0.82-1.09)
[2018-12-28 23:33] LABS: Albumin 4.2 g/dL (3.2-5.2); Albumin/Globulin Ratio 1.2 (1-3); BUN/Creatinine Ratio 8.1 (8-20); Calcium 8.9 mg/dL (8.6-10.3); EGFR African American 100.3 (>60); EGFR Non-African American 82.9 (>60); Globulin 3.5 g/dL (2-4); Potassium 4.2 mmol/L (3.5-5.0); Total Bilirubin 0.4 mg/dL (0.2-1.0); Total Protein 7.7 g/dL (6.4-8.9)
[2018-12-28 23:36] LABS: Troponin I 0.01 ng/mL (<0.04)
[2018-12-28 23:41] LABS: ABS Basophils 0.1 10^3/ul (0-0.2); ABS Eosinophils 0.4 10^3/ul (0-0.6); ABS Lymphocytes 2.3 10^3/ul (1.0-4.8); ABS Monocytes 0.8 10^3/ul (0-0.8); ABS Neutrophils 4.9 10^3/ul (1.5-7.7); Eosinophil % 4.3 %; Mean Platelet Volume 8.1 fL (7.4-10.4); Platelet Count 315 10^3/uL (150-450)
[2018-12-29] MEDS ORDERED: Naloxone Nasal Spray* 4 MG/0.1 ML NASAL.SPR INTRANASAL ONE ×5 (02:16→02:21)
[2018-12-29 02:37] VITALS: BP 151/84
[2018-12-29 02:50] LABS: Urine Benzodiazepine Screen None Detected (None Detect); Urine Opiates Screen None Detected (None Detect)
== END 2018-12-29 03:01 | disposition home or self-care (01) ==
LOC: ED 20:53
DX: R07.9 Chest pain, unspecified (principal); R06.02 Shortness of breath; Z87.891 Personal history of nicotine dependence; I25.10 Atherosclerotic heart disease of native coronary artery without angina pectoris; I10 Essential (primary) hypertension; Z79.82 Long term (current) use of aspirin
CPT/HCPCS: 36415; 71045; 80053; 80307; 83880; 84484; 85025; 85610; 85730; 93005; 99284; A9270-GY

== ENCOUNTER 2019-12-14 14:04 | Inpatient (IN) ==
[2019-12-14] MEDS ORDERED: Ondansetron 4 mg VIAL 2 MG/ML 2 ml VIAL IV PRN (15:50)
[2019-12-14 20:42] LABS: Albumin 3.8 g/dL (3.2-5.2); Albumin/Globulin Ratio 1.1 (1-3); Calcium 8.7 mg/dL (8.6-10.3); EGFR African American 137.5 (>60); EGFR Non-African American 113.7 (>60); Globulin 3.5 g/dL (2-4); Potassium 4.1 mmol/L (3.5-5.0); Total Bilirubin 0.4 mg/dL (0.2-1.0); Total Protein 7.3 g/dL (6.4-8.9)
[2019-12-14 20:44] LABS: ABS Basophils 0.1 10^3/ul (0-0.2); ABS Eosinophils 0.2 10^3/ul (0-0.6); ABS Lymphocytes 1.8 10^3/ul (1.0-4.8); Eosinophil % 2.5 %; Hematocrit 39 % (42-52); Hemoglobin 13.8 g/dL (14.0-18.0); Lymphocyte % 21.1 %; Mean Corpuscular HGB Conc 35 g/dL (31-36); Mean Corpuscular Hemoglobin 32 pg (27-31); Mean Corpuscular Volume 91 fL (80-94); Mean Platelet Volume 7.8 fL (7.4-10.4); Platelet Count 248 10^3/uL (150-450); Red Cell Distribution Width 14 % (10-15); White Blood Count 8.6 10^3/uL (3.5-10.8)
[2019-12-14] MEDS ORDERED: Morphine 2 MG/ML SYRINGE IV ONE (23:36)
[2019-12-15] MEDS ORDERED: Enoxaparin 40 MG/0.4 ML SYR(*) SUBCUT SCH (09:00)
[2019-12-15] MEDS: Buprenorp/Nalox 8-2 MG SL TAB SL SCH (11:22)
[2019-12-15] MEDS ORDERED: MIRTAZAPINE 30 MG PO SCH (21:00)
[2019-12-16] MEDS: Buprenorp/Nalox 8-2 MG SL TAB SL SCH (08:49)
[2019-12-16] MEDS ORDERED: Perflutren Lipid Microsphere 3 ML VIAL ONE (09:54)
[2019-12-17] MEDS: Buprenorp/Nalox 8-2 MG SL TAB SL SCH (07:42)
[2019-12-18] MEDS: Buprenorp/Nalox 8-2 MG SL TAB SL SCH (07:32)
[2019-12-18 11:58] VITALS: BP 102/44
== END 2019-12-18 11:44 | DRG 198 ==
LOC: MEDTELE 17:15 → ED 17:15 → OBSVTOIN 20:32 → MEDTELE 21:28
PROVIDERS: ADMIT Hospitalist; ATTEND Internal Medicine

== ENCOUNTER 2021-08-28 01:01 | Observation (INO) ==
[2021-08-28 01:49] LABS: ABS Basophils 0.1 10^3/ul (0-0.2); ABS Eosinophils 0.3 10^3/ul (0-0.6); ABS Lymphocytes 2.3 10^3/ul (1.0-4.8); ABS Neutrophils 5.1 10^3/ul (1.5-7.7); Hematocrit 40 % (42-52); Hemoglobin 13.5 g/dL (14.0-18.0); Mean Corpuscular HGB Conc 34 g/dL (31-36); Mean Corpuscular Hemoglobin 31 pg (27-31); Mean Corpuscular Volume 92 fL (80-94); Mean Platelet Volume 8.1 fL (7.4-10.4); Nucleated Red Blood Cells % 0.1; Platelet Count 278 10^3/uL (150-450); Red Cell Distribution Width 13 % (10-15); White Blood Count 8.7 10^3/uL (3.5-10.8)
[2021-08-28 01:55] LABS: INR 1.29 (0.86-1.15)
[2021-08-28 02:54] LABS: Albumin 4.2 g/dL (3.2-5.2); Albumin/Globulin Ratio 1.4 (1-3); Calcium 8.5 mg/dL (8.6-10.3); Globulin 2.9 g/dL (2-4); Potassium 3.5 mmol/L (3.5-5.0); Total Bilirubin 0.5 mg/dL (0.2-1.0); Total Protein 7.1 g/dL (6.4-8.9); eGFR CKD-EPI 111.9 (>60)
[2021-08-28] MEDS ORDERED: Al Hydrox/Mg Hydrox/Simet LIQ 30 ML UDC PO ONE (03:05)
[2021-08-28] MEDS ORDERED: Famotidine IV 10 MG/ML 2 ml VIAL (20 mg) IV SLOW PU ONE (03:05)
[2021-08-28] MEDS ORDERED: Ticagrelor 60 mg TAB (NF) PO SCH (09:00)
[2021-08-28] MEDS ORDERED: Enoxaparin 40 MG/0.4 ML SYR SUBCUT SCH (09:00)
[2021-08-28] MEDS ORDERED: Buprenorp/Nalox 8-2 MG FILM SL FILM SCH (10:30)
[2021-08-28] MEDS ORDERED: Regadenoson 0.4 MG/5 ML SYRINGE ONE (11:27)
[2021-08-28] MEDS ORDERED: Aminophylline 25 MG/ML VIAL ONE (11:27)
[2021-08-28 13:28] VITALS: BP 115/59
== END 2021-08-28 14:30 | disposition home or self-care (01) ==
LOC: ED 01:01 → EDHOLD 01:01 → MEDTELE 09:59
PROVIDERS: ADMIT Internal Medicine; ATTEND Internal Medicine

== ENCOUNTER 2021-12-24 21:27 | Observation (INO) ==
[2021-12-24] MEDS: Lidocaine PATCH 5% PATCH TRANSDERM SCH (22:15)
[2021-12-24 22:48] LABS: ABS Basophils 0.1 10^3/ul (0-0.2); ABS Eosinophils 0.1 10^3/ul (0-0.6); ABS Lymphocytes 2.5 10^3/ul (1.0-4.8); ABS Monocytes 2.3 10^3/ul (0-0.8); ABS Neutrophils 11.7 10^3/ul (1.5-7.7); Eosinophil % 0.7 %; Hematocrit 39 % (42-52); Lymphocyte % 14.8 %; Mean Corpuscular HGB Conc 34 g/dL (31-36); Mean Corpuscular Hemoglobin 32 pg (27-31); Mean Corpuscular Volume 94 fL (80-94); Red Blood Count 4.08 10^6 /uL (4.18-5.48); Red Cell Distribution Width 14 % (10-15); White Blood Count 16.6 10^3/uL (3.5-10.8)
[2021-12-24 23:35] LABS: Albumin 3.4 g/dL (3.2-5.2); CO2 Carbon Dioxide 23 mmol/L (22-32); Calcium 8.7 mg/dL (8.6-10.3); Chloride 98 mmol/L (101-111); Sodium 133 mmol/L (135-145)
[2021-12-24 23:37] LABS: Anion Gap 12 mmol/L (2-11)
[2021-12-24 23:38] LABS: Mean Platelet Volume 8.6 fL (7.4-10.4); Platelet Count 241 10^3/uL (150-450)
[2021-12-24 23:41] LABS: ALT 16 U/L (7-52); Albumin/Globulin Ratio 0.9 (1-3); Alkaline Phosphatase 86 U/L (35-149); Blood Urea Nitrogen 13 mg/dL (6-24); C Reactive Protein 144.23 mg/L (<8.01); Globulin 3.8 g/dL (2-4); Glucose 92 mg/dL (70-100); Total Protein 7.2 g/dL (6.4-8.9); eGFR CKD-EPI 113.9 (>60)
[2021-12-25] MEDS ORDERED: Ondansetron 4 mg VIAL 2 MG/ML 2 ml VIAL IV PRN (04:23)
[2021-12-25] MEDS ORDERED: Morphine 2 MG/ML SYRINGE IV PRN (04:27)
[2021-12-25 06:35] LABS: Potassium Redraw 3.9 mmol/L (3.5-5.0)
[2021-12-25] MEDS: Lidocaine PATCH 5% PATCH TRANSDERM SCH (08:57)
[2021-12-25] MEDS ORDERED: HYDROmorphone 1 MG/1 ML SYRINGE IV ONE (13:32)
[2021-12-25 16:28] LABS: Urine Appearance Clear; Urine Bilirubin Negative (Negative); Urine Blood Negative (Negative); Urine Color Amber; Urine Glucose Negative (Negative); Urine Ketones Trace (Negative); Urine Nitrite Negative (Negative); Urine Protein 1+(30 mg/dL) (Negative); Urine Specific Gravity 1.021 (1.002-1.030); Urine Urobilinogen Positive (Negative)
[2021-12-25 16:33] LABS: Urine Bacteria 1+ (Absent); Urine Red Blood Cell Trace(0-2/hpf) (Absent); Urine White Blood Cell Trace(0-5/hpf) (Absent)
[2021-12-25] MEDS ORDERED: Gadoteridol (CONTRAST) 279.3 MG/ML 10 ML IV ONE (19:43)
[2021-12-26 05:32] LABS: ABS Basophils 0.1 10^3/ul (0-0.2); ABS Eosinophils 0.1 10^3/ul (0-0.6); ABS Monocytes 1.3 10^3/ul (0-0.8); Eosinophil % 0.7 %; Hematocrit 35 % (42-52); Hemoglobin 11.6 g/dL (14.0-18.0); Lymphocyte % 17.1 %; Mean Corpuscular HGB Conc 33 g/dL (31-36); Mean Corpuscular Hemoglobin 31 pg (27-31); Mean Corpuscular Volume 93 fL (80-94); Platelet Count 330 10^3/uL (150-450); Red Blood Count 3.74 10^6 /uL (4.18-5.48); Red Cell Distribution Width 13 % (10-15); White Blood Count 11.4 10^3/uL (3.5-10.8)
[2021-12-26 05:49] LABS: Calcium 8.7 mg/dL (8.6-10.3); Potassium 3.6 mmol/L (3.5-5.0); eGFR CKD-EPI 109.2 (>60)
[2021-12-26 07:47] LABS: C Reactive Protein 132.74 mg/L (<8.01)
[2021-12-26] MEDS: Lidocaine PATCH 5% PATCH TRANSDERM SCH (09:05)
[2021-12-26] MEDS ORDERED: Polyethylene Glycol 3350 17 GM PACKET PO PRN (16:40)
[2021-12-26] MEDS ORDERED: Senna TAB 8.6 mg TAB PO PRN (16:40)
[2021-12-26] MEDS ORDERED: Magnesium Hydroxide LIQ 30 ML UDC PO PRN (16:40)
[2021-12-27] MEDS: Lidocaine PATCH 5% PATCH TRANSDERM SCH (08:23)
[2021-12-27 12:15] VITALS: BP 117/76
[2021-12-27 14:09] LABS: Hematocrit 36 % (42-52); Mean Corpuscular HGB Conc 33 g/dL (31-36); Mean Corpuscular Hemoglobin 31 pg (27-31); Mean Corpuscular Volume 92 fL (80-94); Mean Platelet Volume 7.8 fL (7.4-10.4); Platelet Count 358 10^3/uL (150-450); Red Blood Count 3.92 10^6 /uL (4.18-5.48); Red Cell Distribution Width 13 % (10-15); White Blood Count 12.8 10^3/uL (3.5-10.8)
[2021-12-27 14:13] LABS: ABS Basophils 0.1 10^3/ul (0-0.2); ABS Eosinophils 0.2 10^3/ul (0-0.6); ABS Lymphocytes 2.2 10^3/ul (1.0-4.8); ABS Monocytes 1.6 10^3/ul (0-0.8); ABS Neutrophils 8.7 10^3/ul (1.5-7.7); Eosinophil % 1.2 %; Lymphocyte % 17.5 %
== END 2021-12-27 17:03 | disposition home or self-care (01) ==
LOC: EDHOLD 21:27 → ED 21:27 → SSU 12-25 08:44
PROVIDERS: ADMIT Student in an Organized Health Care Education/Training Program; ATTEND Pediatrics